=== PATIENT | female | born 1995 | race Caucasian/White ===

== ENCOUNTER 2017-01-29 00:01 | Observation (INO) | payer OTHER ==
[~2017-01-29] VITALS: Ht 160 cm; Wt 83.0 kg
[~2017-01-29 00:01] MED LIST: MOTRIN800 M1 PO; MOTRIN800 MG PO; NATURAL IRON65 MG PO; PNV-DHA1 SGL PO; PRENATAL VITAMI1 T10 PO
[2017-01-29] MEDS ORDERED: PRENATAL LOW IR1 TA1 PO (00:41)
[2017-01-29 00:46] VITALS: BP 111/67
== END 2017-01-29 01:55 | disposition home or self-care (01) ==
LOC: MLD 00:01
PROVIDERS: ADMIT Obstetrics & Gynecology; ATTEND Obstetrics & Gynecology
DX: O26.899 Other specified pregnancy related conditions, unspecified trimester (principal); R10.9 Unspecified abdominal pain; Z3A.00 Weeks of gestation of pregnancy not specified

== ENCOUNTER 2017-02-10 23:20 | Observation (INO) | payer OTHER ==
[~2017-02-10] VITALS: Ht 160 cm; Wt 82.6 kg
[~2017-02-10 23:20] MED LIST changes: +PRENATAL LOW IR1 TA1 PO
[2017-02-11 00:27] VITALS: BP 107/58
[2017-02-11] MEDS ORDERED: PRENATAL LOW IR1 TA1 PO (00:30)
== END 2017-02-11 01:23 | disposition home or self-care (01) ==
LOC: MLD 23:20
PROVIDERS: ADMIT Obstetrics & Gynecology; ATTEND Obstetrics & Gynecology
DX: O36.8120 Decreased fetal movements, second trimester, not applicable or unspecified (principal); Z3A.22 22 weeks gestation of pregnancy
CPT/HCPCS: 59025; 81000; G0378

== ENCOUNTER 2017-03-13 19:49 | Emergency (ER) | payer OTHER ==
[~2017-03-13] VITALS: Ht 160 cm; Wt 88.0 kg
[2017-03-13 15:52] VITALS: BP 109/59
[2017-03-13 16:01] LABS: BASOPHILS % (AUTO) 0.6 % (0.0-2.0); EOSINOPHILS # (AUTO) 0.1 K/uL (0-0.4); EOSINOPHILS % (AUTO) 1.5 % (0.0-4.0); HEMATOCRIT 33.8 % (36-48); HEMOGLOBIN 11.2 g/dL (12.0-16.0); LYMPHOCYTES # (AUTO) 1.6 K/uL (2.5-16.5); MEAN CORPUSCULAR HEMOGLOBIN 29 pg (27-31); MEAN CORPUSCULAR HGB CONC 33 g/dL (33-37); MEAN CORPUSCULAR VOLUME 89 fL (80-94); MONOCYTES # (AUTO) 0.5 K/uL (0.8-1.0); MONOCYTES % (AUTO) 6.3 % (1.7-9.3); NEUTROPHILS # (AUTO) 5.8 K/uL (1.8-7.7); NEUTROPHILS % (AUTO) 71.6 % (42.2-75.2); PLATELET COUNT (AUTO) 205 K/uL (140-450); RED BLOOD CELL COUNT(AUTO) 3.81 MIL/uL (4.20-5.40); RED CELL DISTRIBUTION WIDTH 12.3 % (11.6-13.7)
[2017-03-13 16:19] LABS: ANION GAP 12.9 (8-16); CARBON DIOXIDE 23.8 mmol/L (21-32); CREATININE 0.5 mg/dL (0.6-1.3); POTASSIUM 3.7 mmol/L (3.5-5.1)
[2017-03-13 16:25] LABS: ALBUMIN 2.5 g/dL (3.4-5.0); TOTAL BILIRUBIN 0.2 mg/dL (0.0-1.0); TOTAL PROTEIN, SERUM 6.2 g/dL (6.4-8.2)
[~2017-03-13 19:49] MED LIST changes: +LACTATED RINGERS 1,000 ML IV SCH; -MOTRIN800 M1 PO; -MOTRIN800 MG PO; -NATURAL IRON65 MG PO; -PNV-DHA1 SGL PO; +PREN-380 PO; -PRENATAL LOW IR1 TA1 PO; -PRENATAL VITAMI1 T10 PO
[2017-03-13 19:59] VITALS: BP 107/62
--- NOTE | 2017-03-13 20:20 | NUR ---
21Y F PRESENT TO ER C/O OF SORENESS IN HER CHEST, NO SOB. PAIN 5/10 IN SCALE. NO DISTRESS NOTED. DENIES INJURY.
[2017-03-13 20:40] VITALS: BP 104/51
== END 2017-03-13 20:40 | disposition home or self-care (01) ==
LOC: EDSTATUS 19:49 → MED 19:49
DX: O26.892 Other specified pregnancy related conditions, second trimester (principal); R07.89 Other chest pain; O23.42 Unspecified infection of urinary tract in pregnancy, second trimester; Z3A.27 27 weeks gestation of pregnancy; Z88.5 Allergy status to narcotic agent
CPT/HCPCS: 36415; 59025; 76805; 80053; 81002; 81025; 85025; 93005; 96360; 96361; 99285; J7120; Q0092

== ENCOUNTER 2017-03-24 19:43 | Emergency (ER) | payer OTHER ==
[~2017-03-24] VITALS: Ht 160 cm; Wt 86.2 kg
[2017-03-24 18:15] VITALS: BP 115/68
[~2017-03-24 19:43] MED LIST changes: -LACTATED RINGERS 1,000 ML IV SCH
[2017-03-24 19:46] VITALS: BP 127/76
[2017-03-24] MEDS ORDERED: NACL 0.9% 1,000 ML IV ONE (19:49)
[2017-03-24] MEDS ORDERED: ONDANSETRON 4 MG/2 ML VIAL IVP ONE (19:50)
[2017-03-24] MEDS ORDERED: diphenhydrAMINE 50 MG/ML VIAL IVP ONE (19:50)
[2017-03-24] MEDS ORDERED: METOCLOPRAMIDE 10 MG/2 ML INJ VIAL IVP ONE (19:50)
--- NOTE | 2017-03-24 20:15 | NUR ---
PATIENT LEFT WITHOUT BEING SEEN BY DR. FOWLER. NO FURTHER CARE PROVIDED FOR PATIENT.
--- NOTE | 2017-03-24 20:15 | NUR ---
CALLED BY ANIMAL CYTOLOGIST NO ANSWER
== END 2017-03-24 20:15 | disposition left against medical advice (07) ==
LOC: EDSTATUS 19:43 → MED 19:43
DX: R11.2 Nausea with vomiting, unspecified (principal); Z53.21 Procedure and treatment not carried out due to patient leaving prior to being seen by health care provider
CPT/HCPCS: 81002

== ENCOUNTER 2017-04-23 10:40 | Observation (INO) | payer OTHER ==
[~2017-04-23] VITALS: Ht 160 cm; Wt 88.0 kg
[2017-04-23] MEDS ORDERED: TERBUTALINE 1 MG/ML VIAL SUBQ SCH (11:00)
[2017-04-23] MEDS ORDERED: BETAMETH ACET/BETAMETH NA PH 30 MG/5 ML VIAL IM ONE ×2 (11:17→22:52)
[2017-04-23] MEDS ORDERED: TERBUTALINE 1 MG/ML VIAL SUBQ ONE ×2 (11:18→13:16)
[2017-04-23] MEDS: BETAMETH ACET/BETAMETH NA PH 30 MG/5 ML VIAL IM SCH ×2 (11:20→22:48)
[2017-04-23 12:58] VITALS: BP 105/60
[2017-04-23] MEDS ORDERED: TERBUTALINE 2.5 MG TAB PO SCH (16:00)
[2017-04-23] MEDS ORDERED: TERBUTALINE 2.5 MG TAB ONE ×2 (16:01→19:59)
== END 2017-04-23 23:12 | disposition home or self-care (01) ==
LOC: MFCC 10:40
PROVIDERS: ADMIT Obstetrics & Gynecology; ATTEND Obstetrics & Gynecology
DX: O62.9 Abnormality of forces of labor, unspecified (principal); Z3A.34 34 weeks gestation of pregnancy
CPT/HCPCS: 76805; 81000; 96372; G0378; J0702; J3105; Q0092

== ENCOUNTER 2017-05-08 15:10 | Observation (INO) | payer OTHER ==
[~2017-05-08] VITALS: Ht 160 cm; Wt 86.2 kg
[2017-05-08 16:05] VITALS: BP 94/51
== END 2017-05-08 17:20 | disposition home or self-care (01) ==
LOC: MLD 15:10
PROVIDERS: ADMIT Obstetrics & Gynecology; ATTEND Obstetrics & Gynecology
DX: O36.8130 Decreased fetal movements, third trimester, not applicable or unspecified (principal); Z3A.00 Weeks of gestation of pregnancy not specified
CPT/HCPCS: 76819; G0378; Q0092

== ENCOUNTER 2017-05-22 22:55 | Observation (INO) | payer OTHER ==
[2017-05-22 23:10] VITALS: BP 93/55
[2017-05-23] MEDS ORDERED: PREN-546 PO (03:49)
--- NOTE | 2017-05-23 08:14 | NUR ---
PATIENT HAS BEEN SCREENED AND CATEGORIZED LOW NUTRITION RISK. PATIENT WILL BE SEEN WITHIN 7 DAYS OF ADMISSION. 05/29/[address]
== END 2017-05-23 09:45 | disposition home or self-care (01) ==
LOC: MLD 22:55
PROVIDERS: ADMIT Obstetrics & Gynecology; ATTEND Obstetrics & Gynecology
DX: O26.899 Other specified pregnancy related conditions, unspecified trimester (principal); R10.9 Unspecified abdominal pain; Z3A.00 Weeks of gestation of pregnancy not specified
CPT/HCPCS: 76815; G0378; Q0092

== ENCOUNTER 2017-05-26 16:05 | Observation (INO) | payer OTHER ==
[~2017-05-26] VITALS: Ht 160 cm; Wt 87.5 kg
[~2017-05-26 16:05] MED LIST changes: +PREN-546 PO
[2017-05-26 16:43] VITALS: BP 106/58
== END 2017-05-26 18:10 | disposition home or self-care (01) ==
LOC: MLD 16:05
PROVIDERS: ADMIT Obstetrics & Gynecology; ATTEND Obstetrics & Gynecology
DX: O26.899 Other specified pregnancy related conditions, unspecified trimester (principal); R10.9 Unspecified abdominal pain; Z3A.00 Weeks of gestation of pregnancy not specified
CPT/HCPCS: 76815; 81000; G0378

== ENCOUNTER 2017-05-27 04:15 | Inpatient (IN) | payer OTHER ==
[~2017-05-27] VITALS: Ht 160 cm; Wt 87.5 kg
[~2017-05-27 04:15] MED LIST changes: -PREN-380 PO
[2017-05-27 04:25] VITALS: BP 121/55
[2017-05-27] MEDS ORDERED: OXYTOCIN 20 UNITS in LACTATED RINGERS 1,000 ML IV SCH ×2 (04:32→07:10)
[2017-05-27] MEDS ORDERED: METHYLERGONOVINE 0.2 MG/ML AMP IM PRN ×2 (04:35→06:35)
[2017-05-27] MEDS ORDERED: PROMETHAZINE 25 MG/ML VIAL IVP PRN (04:35)
[2017-05-27] MEDS ORDERED: CARBOPROST 250 MCG/ML AMP IM PRN (04:35)
[2017-05-27] MEDS ORDERED: IBUPROFEN 800 MG TAB PO PRN ×2 (04:35→06:35)
[2017-05-27] MEDS: LACTATED RINGERS 1,000 ML IV SCH ×2 (04:55→05:44)
[2017-05-27 05:15] LABS: BASOPHILS # (AUTO) 0.3 K/uL (0.00-0.22); BASOPHILS % (AUTO) 2.8 % (0.0-2.0); EOSINOPHILS # (AUTO) 0.2 K/uL (0-0.4); EOSINOPHILS % (AUTO) 2.5 % (0.0-4.0); HEMATOCRIT 34.4 % (36-48); HEMOGLOBIN 10.9 g/dL (12.0-16.0); LYMPHOCYTES % (AUTO) 21.8 % (20.5-51.1); MEAN CORPUSCULAR HEMOGLOBIN 28 pg (27-31); MEAN CORPUSCULAR HGB CONC 32 g/dL (33-37); MEAN CORPUSCULAR VOLUME 87 fL (80-94); MONOCYTES # (AUTO) 0.8 K/uL (0.8-1.0); NEUTROPHILS # (AUTO) 5.8 K/uL (1.8-7.7); NEUTROPHILS % (AUTO) 63.9 % (42.2-75.2); PLATELET COUNT (AUTO) 190 K/uL (140-450); RED BLOOD CELL COUNT(AUTO) 3.97 MIL/uL (4.20-5.40); RED CELL DISTRIBUTION WIDTH 13.3 % (11.6-13.7); WHITE BLOOD COUNT (AUTO) 9.1 K/uL (4.5-11.0)
[2017-05-27] MEDS ORDERED: LIDOCAINE 1% 500 MG/50 ML VIAL INJ SCH (05:20)
[2017-05-27 05:30] LABS: APPEARANCE,URINE CLOUDY (CLEAR); BILIRUBIN,URINE NEGATIVE (NEGATIVE); BLOOD, URINE 3+ (NEGATIVE); COLOR,URINE YELLOW (YELLOW); LEUKOCYTE ESTERASE ,URINE 3+ (NEGATIVE); NITRITE, URINE NEGATIVE (NEGATIVE); UGLUCOSE NEGATIVE (NEGATIVE)
[2017-05-27 05:33] LABS: ANION GAP 12.2 (8-16); CARBON DIOXIDE 23.2 mmol/L (21-32); CREATININE 0.6 mg/dL (0.6-1.3); POTASSIUM 3.4 mmol/L (3.5-5.1)
[2017-05-27 05:39] LABS: ALBUMIN 2.1 g/dL (3.4-5.0); TOTAL BILIRUBIN 0.2 mg/dL (0.0-1.0)
[2017-05-27 05:42] LABS: RBC,URINE 3-10 (FEW) /HPF (0-5); WBC,URINE 60-80 /HPF (0-5)
[2017-05-27] MEDS ORDERED: OXYTOCIN 10 UNITS/ML VIAL ONE (05:43)
[2017-05-27] MEDS ORDERED: LIDOCAINE 1% 50 ML ONE (05:43)
[2017-05-27] MEDS ORDERED: OXYTOCIN 20 UNITS/LR PREMIX 1,000 ML IV ONE (05:43)
[2017-05-27] MEDS ORDERED: oxyCODONE/APAP 5/325 MG 1 TAB TAB PO PRN (06:35)
[2017-05-27] MEDS ORDERED: BENZOCAINE/MENTHOL 20%-0.5% 60 GM CAN TP PRN (06:35)
[2017-05-27] MEDS ORDERED: HYDROcodone/APAP 5/325 MG 1 TAB TAB PO PRN (06:35)
[2017-05-27] MEDS ORDERED: MEASLES, MUMPS, AND RUBELLA 1 VIAL SQVAC PRN (06:35)
[2017-05-27] MEDS ORDERED: OXYTOCIN 10 UNITS/ML VIAL IM PRN (06:35)
[2017-05-27] MEDS ORDERED: TEMAZEPAM 15 MG CAP PO PRN (06:35)
[2017-05-27] MEDS ORDERED: oxyCODONE/APAP 5/325 MG 1 TAB TAB ONE (07:57)
--- NOTE | 2017-05-27 09:10 | NUR ---
PATIENT HAS BEEN SCREENED AND CATEGORIZED LOW NUTRITION RISK. PATIENT WILL BE SEEN WITHIN 7 DAYS OF ADMISSION. 06/02/[address]
[2017-05-27] MEDS ORDERED: OXYTOCIN 10 UNITS/ML VIAL IM ONE (11:00)
[2017-05-27] MEDS ORDERED: DOCUSATE SOD/SENNA 50/8.6 MG 1 TAB PO SCH (21:00)
[2017-05-28 06:36] LABS: HEMATOCRIT 33.9 % (36-48)
[2017-05-28] MEDS ORDERED: IBUP-1842 PO (10:20)
== END 2017-05-28 18:00 | disposition home or self-care (01) | DRG 560 ==
LOC: MLD 04:15 → OBSVTOIN 04:32 → MFCC 09:30
PROVIDERS: ADMIT Obstetrics & Gynecology; ATTEND Obstetrics & Gynecology
PROC: 10E0XZZ Delivery of Products of Conception, External Approach (ICD-10-PCS; principal; 2017-05-27)
PROC: 3E033VJ Introduction of Other Hormone into Peripheral Vein, Percutaneous Approach (ICD-10-PCS; 2017-05-27)
DX: O80 Encounter for full-term uncomplicated delivery (principal); Z88.5 Allergy status to narcotic agent; Z37.0 Single live birth; Z3A.37 37 weeks gestation of pregnancy
CPT/HCPCS: 36415; 59409; 80053; 81001; 85018; 85025; 86592; 86886; 86900; 86901; 87086; 90715; G0378; J2001; J2590; J7120

== ENCOUNTER 2017-07-09 14:18 | Emergency (ER) | payer OTHER ==
[~2017-07-09] VITALS: Ht 160 cm; Wt 80.9 kg
[~2017-07-09 14:18] MED LIST changes: +IBUP-1842 PO
[2017-07-09 14:22] VITALS: BP 122/75
--- NOTE | 2017-07-09 14:22 | NUR ---
Patient ambulated to bed 11.
--- NOTE | 2017-07-09 14:30 | NUR ---
21F BIB FAMILY C/O 06/25 "SHARP" NON RADIATING RT UPPER QUADRANT ABDOMINAL PAIN X 3 DAYS WITH NAUSEA AND EMESIS DENIES ANY DIARRHEA OR URINARY COMPLAINTS; PT DENIES ANY BLOOD IN EMESIS OR BOWEL; PT IS AOX4; RR ARE EVEN AND UNLABORED; NAD; PATIENT POSITIONED FOR COMFORT; ER MD AWARE OF PT STATUS; ALL NEEDS MET AT THIS TIME; WILL CONTINUE TO MONITOR
[2017-07-09] MEDS ORDERED: NACL 0.9% 1,000 ML IV SCH (14:37)
--- NOTE | 2017-07-09 14:38 | NUR ---
Dr. Moreira evaluating patient at bedside.
[2017-07-09] MEDS ORDERED: ONDANSETRON 4 MG/2 ML VIAL IVP ONE (14:40)
[2017-07-09] MEDS ORDERED: KETOROLAC 30 MG/ML VIAL IVP ONE (14:40)
--- NOTE | 2017-07-09 14:47 | NUR ---
US at bedside.
[2017-07-09 14:57] LABS: BILIRUBIN,URINE NEGATIVE (NEGATIVE); BLOOD, URINE NEGATIVE (NEGATIVE); COLOR,URINE YELLOW (YELLOW); LEUKOCYTE ESTERASE ,URINE 1+ (NEGATIVE); NITRITE, URINE NEGATIVE (NEGATIVE); PH,URINE 6.5 (5.0-9.0); UGLUCOSE NEGATIVE (NEGATIVE)
[2017-07-09 15:01] LABS: HEMATOCRIT 39.1 % (36-48); HEMOGLOBIN 12.8 g/dL (12.0-16.0); RED BLOOD CELL COUNT(AUTO) 4.57 MIL/uL (4.20-5.40); WHITE BLOOD COUNT (AUTO) 7.9 K/uL (4.5-11.0)
[2017-07-09 15:02] LABS: BASOPHILS % (AUTO) 0.2 % (0.0-2.0); EOSINOPHILS % (AUTO) 2.6 % (0.0-4.0); LYMPHOCYTES % (AUTO) 21.5 % (20.5-51.1); MEAN CORPUSCULAR HEMOGLOBIN 28 pg (27-31); MEAN CORPUSCULAR HGB CONC 33 g/dL (33-37); MEAN CORPUSCULAR VOLUME 86 fL (80-94); MONOCYTES % (AUTO) 8.2 % (1.7-9.3); NEUTROPHILS # (AUTO) 5.3 K/uL (1.8-7.7); NEUTROPHILS % (AUTO) 67.5 % (42.2-75.2); PLATELET COUNT (AUTO) 275 K/uL (140-450); RED CELL DISTRIBUTION WIDTH 14.8 % (11.6-13.7)
[2017-07-09 15:03] LABS: EOSINOPHILS # (AUTO) 0.2 K/uL (0-0.4); LYMPHOCYTES # (AUTO) 1.7 K/uL (2.5-16.5); MONOCYTES # (AUTO) 0.6 K/uL (0.8-1.0)
[2017-07-09 15:16] LABS: ALBUMIN 3.3 g/dL (3.4-5.0); ANION GAP 8.2 (8-16); CARBON DIOXIDE 31.5 mmol/L (21-32); CREATININE 0.7 mg/dL (0.6-1.3); POTASSIUM 3.7 mmol/L (3.5-5.1); TOTAL BILIRUBIN 0.3 mg/dL (0.0-1.0)
[2017-07-09 15:41] LABS: APPEARANCE,URINE HAZY (CLEAR)
[2017-07-09 15:44] LABS: RBC,URINE NONE SEEN /HPF (0-5); WBC,URINE 80-100 /HPF (0-5)
[2017-07-09] MEDS ORDERED: fentaNYL 0.05 MG/ML VIAL IVP ONE (16:10)
[2017-07-09] MEDS ORDERED: cefTRIAXone 1,000 MG VIAL ONE (16:13)
[2017-07-09 17:13] VITALS: BP 107/72
--- NOTE | 2017-07-09 17:13 | NUR ---
Patient discharged with v/s stable. Written and verbal after care instructions given and explained. Patient alert, oriented and verbalized understanding of instructions. Ambulatory with steady gait. All questions addressed prior to discharge. ID band removed. Patient advised to follow up with PMD. Rx of Cephalexin, Zofran, and Naprosyn given. Patient educated on indication of medication including possible reaction and side effects. Opportunity to ask questions provided and answered.
== END 2017-07-09 17:13 | disposition home or self-care (01) ==
LOC: MED 14:18
DX: N20.0 Calculus of kidney (principal); Z88.5 Allergy status to narcotic agent
CPT/HCPCS: 36415; 76705; 80053; 81001; 81025; 83605; 83690; 85025; 87040; 87086; 96361; 96365; 96374; 96375; 99285; J0696; J1885; J2405; J3010; J7030; J7060; Q0092

== ENCOUNTER 2017-08-15 18:06 | Emergency (ER) | payer OTHER ==
[~2017-08-15] VITALS: Ht 160 cm; Wt 82.7 kg
[2017-08-15 18:34] VITALS: BP 119/66
--- NOTE | 2017-08-15 18:52 | NUR ---
Patient to bed 03.
[2017-08-15 18:54] VITALS: BP 119/66
[2017-08-15 18:55] LABS: BASOPHILS # (AUTO) 0.3 K/uL (0.00-0.22); EOSINOPHILS # (AUTO) 0.1 K/uL (0-0.4); HEMATOCRIT 37.9 % (36-48); HEMOGLOBIN 12.6 g/dL (12.0-16.0); LYMPHOCYTES # (AUTO) 2.2 K/uL (2.5-16.5); MEAN CORPUSCULAR HEMOGLOBIN 29 pg (27-31); MEAN CORPUSCULAR HGB CONC 33 g/dL (33-37); MEAN CORPUSCULAR VOLUME 86 fL (80-94); MONOCYTES # (AUTO) 0.5 K/uL (0.8-1.0); NEUTROPHILS # (AUTO) 4.4 K/uL (1.8-7.7); PLATELET COUNT (AUTO) 246 K/uL (140-450); RED CELL DISTRIBUTION WIDTH 13.9 % (11.6-13.7); WHITE BLOOD COUNT (AUTO) 7.5 K/uL (4.8-10.8)
[2017-08-15 18:58] LABS: APPEARANCE,URINE HAZY (CLEAR); BILIRUBIN,URINE NEGATIVE (NEGATIVE); BLOOD, URINE NEGATIVE (NEGATIVE); COLOR,URINE YELLOW (YELLOW); LEUKOCYTE ESTERASE ,URINE 2+ (NEGATIVE); NITRITE, URINE NEGATIVE (NEGATIVE); UGLUCOSE NEGATIVE (NEGATIVE)
--- NOTE | 2017-08-15 18:59 | NUR ---
PATIENT PRESENTS TO ED WITH C/O RIGHT FLANK PAIN THAT RADIATES INTO LOW TO MID ABDOMEN X2 DAYS . PT STATES SHE WAS SEEN IN ER 3 WEEKS AGO FOR SAME S/SX . DENIES N/V/D; SKIN IS PINK/WARM/DRY; AAOX4 WITH EVEN AND STEADY GAIT; LUNGS CLEAR BL; HR EVEN AND REGULAR; PT DENIES ANY FEVER, CP, SOB, OR COUGH AT THIS TIME; PATIENT STATES PAIN OF 9/10 AT THIS TIME; VSS; PATIENT POSITIONED FOR COMFORT; HOB ELEVATED; BEDRAILS UP X2; BED DOWN. ER MD MADE AWARE OF PT STATUS.
--- NOTE | 2017-08-15 19:00 | NUR ---
REPORT RECEIVED FROM CK BERRIOS
[2017-08-15 19:04] LABS: RBC,URINE 0-5 (RARE) /HPF (0-5)
[2017-08-15 19:11] LABS: ANION GAP 9.7 (8-16); CARBON DIOXIDE 28.2 mmol/L (21-32); CREATININE 0.7 mg/dL (0.6-1.3); POTASSIUM 3.9 mmol/L (3.5-5.1)
[2017-08-15 19:17] LABS: ALBUMIN 3.5 g/dL (3.4-5.0); TOTAL BILIRUBIN 0.2 mg/dL (0.0-1.0)
[2017-08-15] MEDS ORDERED: GLYCOPYRROLATE 0.2 MG/ML VIAL IM ONE (20:10)
[2017-08-15] MEDS ORDERED: KETOROLAC 30 MG/ML VIAL IM ONE (20:10)
--- NOTE | 2017-08-15 21:14 | NUR ---
PT MD MAYELIN NOTIFIED.
--- NOTE | 2017-08-15 21:17 | NUR ---
PATIENT ELOPED FROM FACILITY. DISCHARGE INSTRUCTIONS NOT GIVEN TO PATIENT. DR. SONI NOTIFIED.
== END 2017-08-15 21:14 | disposition left against medical advice (07) ==
LOC: MED 18:06
DX: N20.0 Calculus of kidney (principal); N39.0 Urinary tract infection, site not specified; Z88.5 Allergy status to narcotic agent
CPT/HCPCS: 36415; 74176; 80053; 81001; 81025; 83690; 85025; 87086; 99285; J1885; J3490

== ENCOUNTER 2017-12-09 15:23 | Emergency (ER) | payer OTHER ==
[~2017-12-09] VITALS: Ht 160 cm; Wt 84.4 kg
[2017-12-09 16:10] VITALS: BP 124/78
--- NOTE | 2017-12-09 16:15 | NUR ---
AFTER PROVIDING URINE SAMPLE, PT AMBULATES BACK TO THE LOBBY PER DR DOWNING
[2017-12-09 17:10] LABS: BASOPHILS # (AUTO) 0.1 K/uL (0.00-0.22); EOSINOPHILS # (AUTO) 0.3 K/uL (0-0.4); EOSINOPHILS % (AUTO) 3.5 % (0.0-4.0); HEMATOCRIT 39.2 % (36-48); HEMOGLOBIN 13.2 g/dL (12.0-16.0); LYMPHOCYTES # (AUTO) 2.2 K/uL (2.5-16.5); LYMPHOCYTES % (AUTO) 28.8 % (20.5-51.1); MEAN CORPUSCULAR HEMOGLOBIN 28 pg (27-31); MEAN CORPUSCULAR HGB CONC 34 g/dL (33-37); MEAN CORPUSCULAR VOLUME 83.5 fL (80-94); MONOCYTES # (AUTO) 0.4 K/uL (0.8-1.0); MONOCYTES % (AUTO) 5.3 % (1.7-9.3); NEUTROPHILS # (AUTO) 4.5 K/uL (1.8-7.7); NEUTROPHILS % (AUTO) 60.4 % (42.2-75.2); PLATELET COUNT (AUTO) 237 K/uL (140-450); RED BLOOD CELL COUNT(AUTO) 4.69 MIL/uL (4.20-5.40); WHITE BLOOD COUNT (AUTO) 7.5 K/uL (4.8-10.8)
[2017-12-09 17:27] LABS: PROTHROMBIN TIME 10.1 secs (10.8-13.4)
--- NOTE | 2017-12-09 19:24 | NUR ---
PATIENT AMBULATED TO ER BED 2
--- NOTE | 2017-12-09 19:25 | NUR ---
22/F CAME IN WITH FAMILY, C/O HEAVY VAGINAL BLEEDING AND CLOTS X1 DAY, BLEEDING CONTROLLED AT THIS TIME. PT REPORTS 06/25 VAGINAL/SUPRAPUBIC CRAMPING/"CONTRACTIONS" PAIN, RADIATING TO LOWER BACK, CONSTANT. ASSOCIATED WITH HEADACHE, DIZZINESS. PT REPORTS PREVIOUS N/V, BUT DENIES AT THIS TIME. PT DENIES FEVER, CP, SOB. AOX4, AMBULATORY, RR EVEN AND UNLABORED. PT REPORTS PREVIOUS 2X + AND LATEST - LAST WEEK. PT DENIES PMH.
--- NOTE | 2017-12-09 20:10 | NUR ---
Dr. Anderson evaluating patient.
--- NOTE | 2017-12-09 21:13 | NUR ---
Patient appears to be resting comfortably in bed. Vital Signs within normal limits. Respirations even and unlabored.
[2017-12-09 22:35] VITALS: BP 109/53
--- NOTE | 2017-12-09 22:35 | NUR ---
Patient discharged with v/s stable. Written and verbal after care instructions given and explained. Patient alert, oriented and verbalized understanding of instructions. Ambulatory with steady gait. All questions addressed prior to discharge. ID band removed. Patient advised to follow up with PMD. Rx of MEDROXYPROGESTERONE 10MG PO given. Patient educated on indication of medication including possible reaction and side effects. Opportunity to ask questions provided and answered.
--- NOTE | 2017-12-09 22:35 | NUR ---
PT ASKING FOR WORK NOTE, SIGNED D/C PAPERS WERE GIVEN ALONG WITH PT.
== END 2017-12-09 22:35 | disposition home or self-care (01) ==
LOC: MED 15:23
DX: N93.8 Other specified abnormal uterine and vaginal bleeding (principal); Z79.899 Other long term (current) drug therapy; Z88.5 Allergy status to narcotic agent
CPT/HCPCS: 36415; 76830; 81002; 81025; 84702; 85025; 85610; 85730; 99285; Q0092

== ENCOUNTER 2018-01-07 13:04 | Emergency (ER) | payer OTHER ==
[~2018-01-07] VITALS: Ht 160 cm; Wt 84.8 kg
[2018-01-07 13:12] VITALS: BP 113/73
--- NOTE | 2018-01-07 13:16 | NUR ---
PT AMBULATES TO CHAIR A
--- NOTE | 2018-01-07 13:18 | NUR ---
PATIENT PRESENTS TO ED WITH C/O BL LOWER LEG PAIN, AMBULATES TO CHAIR A WITHOUT DIFFICULTY; DENIES INJURY; DENIES N/V/D; SKIN IS PINK/WARM/DRY; AAOX4 WITH EVEN AND STEADY GAIT; LUNGS CLEAR BL; HR EVEN AND REGULAR; PT DENIES ANY FEVER, CP, SOB, OR COUGH AT THIS TIME; PATIENT STATES PAIN OF 9/10 AT THIS TIME; VSS; PATIENT POSITIONED FOR COMFORT; ER MD MADE AWARE OF PT STATUS.
--- NOTE | 2018-01-07 13:30 | NUR ---
PT EVALUATING AAO PT ON CHAIR A
[2018-01-07 13:50] VITALS: BP 110/67
== END 2018-01-07 13:50 | disposition home or self-care (01) ==
LOC: MED 13:04
DX: R20.2 Paresthesia of skin (principal); M79.1 Myalgia; M54.5 Low back pain; Z88.6 Allergy status to analgesic agent
CPT/HCPCS: 81002; 81025; 82948; 99283

== ENCOUNTER 2018-02-11 20:25 | Emergency (ER) | payer OTHER ==
[~2018-02-11] VITALS: Ht 160 cm; Wt 88.7 kg
[2018-02-11 20:30] VITALS: BP 119/72
--- NOTE | 2018-02-11 20:57 | NUR ---
PT TAKEN TO BED 12
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
--- NOTE | 2018-02-11 22:00 | NUR ---
AWAITING MD EVALUATION
--- NOTE | 2018-02-11 23:18 | NUR ---
PT RESTING COMFORTABLY IN BED, VSS, PT DENIES PAIN AT THIS TIME, ALL NEEDS MET.
--- NOTE | 2018-02-12 00:43 | NUR ---
PT RESTING COMFORTABLY IN BED, VSS, PT DENIES PAIN AT THIS TIME, PROVIDED SNACKS, ALL NEEDS MET AT THIS TIME.
--- NOTE | 2018-02-12 02:08 | NUR ---
PT SLEEPING COMFORTABLY IN BED, VSS, ALL NEEDS MET AT THIS TIME.
--- NOTE | 2018-02-12 02:14 | NUR ---
Dr. Rodrigez evaluating patient at bedside.
[2018-02-12] MEDS ORDERED: ONDANSETRON 4 MG/2 ML VIAL IVP ONE (03:00)
[2018-02-12] MEDS ORDERED: cefTRIAXone 1,000 MG in DEXT 5% MINI-BAG PLUS 50 ML IV ONE (03:00)
[2018-02-12] MEDS ORDERED: cefTRIAXone 1,000 MG VIAL ONE (03:14)
[2018-02-12 03:31] LABS: BASOPHILS % (AUTO) 0.4 % (0.0-2.0); EOSINOPHILS # (AUTO) 0.2 K/uL (0-0.4); EOSINOPHILS % (AUTO) 2.5 % (0.0-4.0); HEMATOCRIT 36.9 % (36-48); HEMOGLOBIN 12.1 g/dL (12.0-16.0); LYMPHOCYTES # (AUTO) 2.5 K/uL (2.5-16.5); LYMPHOCYTES % (AUTO) 36.3 % (20.5-51.1); MEAN CORPUSCULAR HEMOGLOBIN 27 pg (27-31); MEAN CORPUSCULAR HGB CONC 33 g/dL (33-37); MEAN CORPUSCULAR VOLUME 83.3 fL (80-94); MONOCYTES # (AUTO) 0.4 K/uL (0.8-1.0); MONOCYTES % (AUTO) 6.3 % (1.7-9.3); NEUTROPHILS # (AUTO) 3.7 K/uL (1.8-7.7); NEUTROPHILS % (AUTO) 54.5 % (42.2-75.2); PLATELET COUNT (AUTO) 246 K/uL (140-450); RED BLOOD CELL COUNT(AUTO) 4.43 MIL/uL (4.20-5.40); RED CELL DISTRIBUTION WIDTH 13.8 % (11.6-13.7); WHITE BLOOD COUNT (AUTO) 6.8 K/uL (4.8-10.8)
[2018-02-12 03:41] LABS: ANION GAP 13.2 (8-16); CARBON DIOXIDE 23.5 mmol/L (21-32); CREATININE 0.6 mg/dL (0.6-1.3); POTASSIUM 3.7 mmol/L (3.5-5.1)
[2018-02-12 03:48] LABS: TOTAL BILIRUBIN 0.2 mg/dL (0.0-1.0)
--- NOTE | 2018-02-12 03:59 | NUR ---
PT TAKEN TO ULTRASOUND
--- NOTE | 2018-02-12 04:38 | NUR ---
NEW UA SAMPLE COLLECTED, BROUGHT TO LAB AND HANDED TO BRIDGE WORKER
--- NOTE | 2018-02-12 04:38 | NUR ---
DR RUBIO AT BEDSIDE TO RE-EVALUATE PT. PT RESTING COMFORTABLY IN BED, VSS, RR EVEN AND UNLABORED. PT DENIES PAIN. ALL NEEDS MET AT THIS TIME.
[2018-02-12 04:48] LABS: APPEARANCE,URINE CLEAR (CLEAR); BILIRUBIN,URINE NEGATIVE (NEGATIVE); BLOOD, URINE NEGATIVE (NEGATIVE); COLOR,URINE YELLOW (YELLOW); LEUKOCYTE ESTERASE ,URINE 2+ (NEGATIVE); NITRITE, URINE NEGATIVE (NEGATIVE); PH,URINE 6.5 (5.0-9.0); UGLUCOSE NEGATIVE (NEGATIVE)
[2018-02-12 05:00] LABS: RBC,URINE 0-5 (RARE) /HPF (0-5); WBC,URINE 16-25 (MOD) /HPF (0-5)
[2018-02-12 05:48] VITALS: BP 113/64
== END 2018-02-12 05:48 | disposition home or self-care (01) ==
LOC: MED 20:25
DX: O26.891 Other specified pregnancy related conditions, first trimester (principal); R42 Dizziness and giddiness; Z88.5 Allergy status to narcotic agent
CPT/HCPCS: 36415; 76817; 80053; 81001; 81025; 84702; 85025; 86900; 86901; 87086; 96365; 96375; 99285; J0696; J2405; J7060

== ENCOUNTER 2018-03-12 20:38 | Emergency (ER) | payer OTHER ==
[~2018-03-12] VITALS: Ht 160 cm; Wt 84.8 kg
[2018-03-12 20:42] VITALS: BP 143/68
--- NOTE | 2018-03-12 20:44 | NUR ---
TO BED # 4 AMB, REPORT GIVEN TO LATONYA STOVER.
--- NOTE | 2018-03-12 20:50 | NUR ---
ASSUMED CARE OF PT AT THIS TIME. C/O RUQ ABDOMINAL PAIN AND DIZZINESS X 6 DAYS. PT DENIES ANY N/V/D, CONSTIPATION, OR URINARY COMPLAINTS. PT STATES SHE IS APPROXIMATELY 8 WEEKS OB+. AAOX4 WITH EVEN AND STEADY GAIT; PATIENT STATES PAIN OF 10/10 AT THIS TIME; VSS; PATIENT POSITIONED FOR COMFORT; HOB ELEVATED; BEDRAILS UP X2; BED DOWN. ER MD MADE AWARE OF PT STATUS. WILL CONTINUE TO MONITOR.
--- NOTE | 2018-03-12 21:38 | NUR ---
PT TAKEN TO ULTRASOUND
[2018-03-12 21:40] LABS: APPEARANCE,URINE CLEAR (CLEAR); BILIRUBIN,URINE NEGATIVE (NEGATIVE); BLOOD, URINE NEGATIVE (NEGATIVE); COLOR,URINE YELLOW (YELLOW); LEUKOCYTE ESTERASE ,URINE 1+ (NEGATIVE); NITRITE, URINE NEGATIVE (NEGATIVE); UGLUCOSE NEGATIVE (NEGATIVE)
[2018-03-12 21:41] LABS: BASOPHILS % (AUTO) 0.2 % (0.0-2.0); EOSINOPHILS # (AUTO) 0.1 K/uL (0-0.4); EOSINOPHILS % (AUTO) 1.7 % (0.0-4.0); HEMATOCRIT 36.7 % (36-48); HEMOGLOBIN 12.1 g/dL (12.0-16.0); LYMPHOCYTES # (AUTO) 2.1 K/uL (2.5-16.5); LYMPHOCYTES % (AUTO) 30.8 % (20.5-51.1); MEAN CORPUSCULAR HEMOGLOBIN 28 pg (27-31); MEAN CORPUSCULAR HGB CONC 33 g/dL (33-37); MEAN CORPUSCULAR VOLUME 84.3 fL (80-94); MONOCYTES # (AUTO) 0.5 K/uL (0.8-1.0); MONOCYTES % (AUTO) 7.2 % (1.7-9.3); NEUTROPHILS % (AUTO) 60.1 % (42.2-75.2); PLATELET COUNT (AUTO) 192 K/uL (140-450); RED BLOOD CELL COUNT(AUTO) 4.35 MIL/uL (4.20-5.40); RED CELL DISTRIBUTION WIDTH 13.9 % (11.6-13.7); WHITE BLOOD COUNT (AUTO) 6.7 K/uL (4.8-10.8)
[2018-03-12 21:53] LABS: RBC,URINE 0-5 (RARE) /HPF (0-5)
--- NOTE | 2018-03-12 23:13 | NUR ---
Dr. Rodrigez evaluating patient at bedside.
--- NOTE | 2018-03-12 23:15 | NUR ---
RECEIVED REPORT FROM LATONYA STOVER. TRANSFER OF CARE AT THIS TIME.
--- NOTE | 2018-03-12 23:20 | NUR ---
PATIENT RESTING AT THIS TIME. NO SIGNS OF DISTRESS.
[2018-03-12 23:56] VITALS: BP 107/67
== END 2018-03-12 23:50 | disposition home or self-care (01) ==
LOC: MED 20:38
DX: O26.891 Other specified pregnancy related conditions, first trimester (principal); N20.0 Calculus of kidney; Z3A.08 8 weeks gestation of pregnancy
CPT/HCPCS: 36415; 76705; 76817; 81001; 81025; 84702; 85025; 86900; 86901; 87086; 99285

== ENCOUNTER 2018-04-25 15:51 | Emergency (ER) | payer OTHER ==
[~2018-04-25] VITALS: Ht 160 cm; Wt 81.6 kg
[2018-04-25 16:05] VITALS: BP 101/61
--- NOTE | 2018-04-25 16:10 | NUR ---
PT AMBULATES TO BED 3
--- NOTE | 2018-04-25 16:15 | NUR ---
22 YO F BIB SELF W/ C/O DIZZINESS, CRAMPS, AND LIGHT VAGINAL BLEEDING SINCE LAST NIGHT. PT REPORTS THE BLEEDING IS VERY SCANT, BUT THE CRAMPING IS VERY UNCOMFORTABLE, AND "FEELS LIKE CONTRACTIONS". REPORTS 15 WEEKS . HAS OB ESTABLISHED. TAKING VITAMINS. DENIES BLOOD CLOTS OR N/V AT THIS TIME. LMP 01/09/18, . PT AAOX4. GCS 15. CMS INTACT. RR EVEN AND UNLABORED. LUNGS CLEAR. ER MD NOTIFIED. PT NEEDS MET. SAFETY PRECAUTIONS IN PLACE. WILL CONTINUE TO MONITOR.
--- NOTE | 2018-04-25 17:17 | NUR ---
PT TALKING ON THE PHONE AT THIS TIME. VSS. SAFETY PRECAUTIONS IN PLACE. WILL CONTINUE TO MONITOR.
[2018-04-25 17:18] LABS: BASOPHILS % (AUTO) 0.1 % (0.0-2.0); EOSINOPHILS # (AUTO) 0.1 K/uL (0-0.4); EOSINOPHILS % (AUTO) 1.4 % (0.0-4.0); HEMATOCRIT 35.5 % (36-48); HEMOGLOBIN 11.8 g/dL (12.0-16.0); LYMPHOCYTES # (AUTO) 1.7 K/uL (2.5-16.5); LYMPHOCYTES % (AUTO) 22.9 % (20.5-51.1); MEAN CORPUSCULAR HEMOGLOBIN 28 pg (27-31); MEAN CORPUSCULAR HGB CONC 33 g/dL (33-37); MEAN CORPUSCULAR VOLUME 85.5 fL (80-94); MONOCYTES # (AUTO) 0.4 K/uL (0.8-1.0); MONOCYTES % (AUTO) 5.4 % (1.7-9.3); NEUTROPHILS # (AUTO) 5.3 K/uL (1.8-7.7); NEUTROPHILS % (AUTO) 70.2 % (42.2-75.2); PLATELET COUNT (AUTO) 190 K/uL (140-450); RED BLOOD CELL COUNT(AUTO) 4.15 MIL/uL (4.20-5.40); RED CELL DISTRIBUTION WIDTH 14.2 % (11.6-13.7); WHITE BLOOD COUNT (AUTO) 7.5 K/uL (4.8-10.8)
[2018-04-25 17:40] LABS: APPEARANCE,URINE CLEAR (CLEAR); BILIRUBIN,URINE NEGATIVE (NEGATIVE); BLOOD, URINE NEGATIVE (NEGATIVE); COLOR,URINE YELLOW (YELLOW); LEUKOCYTE ESTERASE ,URINE NEGATIVE (NEGATIVE); NITRITE, URINE NEGATIVE (NEGATIVE); PH,URINE 7.5 (5.0-9.0); UGLUCOSE NEGATIVE (NEGATIVE)
[2018-04-25 17:45] LABS: RBC,URINE 0-5 (RARE) /HPF (0-5)
[2018-04-25 17:46] LABS: WBC,URINE 0-5 (RARE) /HPF (0-5)
[2018-04-25 18:57] VITALS: BP 132/79
--- NOTE | 2018-04-25 18:58 | NUR ---
Patient discharged with v/s stable. Written and verbal after care instructions given and explained. Patient alert, oriented and verbalized understanding of instructions. Ambulatory with steady gait. All questions addressed prior to discharge. ID band removed. Patient advised to follow up with PMD. Rx of ACETAMINOPHEN 500MG given. Patient educated on indication of medication including possible reaction and side effects. Opportunity to ask questions provided and answered.
== END 2018-04-25 18:58 | disposition home or self-care (01) ==
LOC: MED 15:51
DX: O26.892 Other specified pregnancy related conditions, second trimester (principal); R10.30 Lower abdominal pain, unspecified; Z3A.15 15 weeks gestation of pregnancy; Z88.5 Allergy status to narcotic agent
CPT/HCPCS: 36415; 76805; 81001; 81025; 84702; 85025; 99285; Q0092

== ENCOUNTER 2018-05-06 10:55 | Emergency (ER) | payer OTHER ==
[~2018-05-06] VITALS: Ht 160 cm; Wt 88.9 kg
--- NOTE | 2018-05-06 11:00 | NUR ---
PT AMBULATED TO ER BED 09
[2018-05-06 11:03] VITALS: BP 124/65
--- NOTE | 2018-05-06 11:10 | NUR ---
PATIENT PRESENTS TO ED WITH COMPLAINTS OF LOWER ABDOMINAL PAIN, PATIENT IS 17 WEEKS . PATIENT STATES SHE FELL ON HER BELLY AT WORK THIS MORNING AND PAIN HAS BEEN CONSTANT SINCE. DENIES N/V/D; SKIN IS PINK/WARM/DRY; AAOX4 WITH EVEN AND STEADY GAIT; LUNGS CLEAR BL; HR EVEN AND REGULAR; PT DENIES ANY FEVER, CP, SOB, OR COUGH AT THIS TIME; PATIENT STATES PAIN OF 10/10 AT THIS TIME; VSS; PATIENT POSITIONED FOR COMFORT; HOB ELEVATED; BEDRAILS UP X1; BED DOWN. ER MD MADE AWARE OF PT STATUS.
[2018-05-06] MEDS ORDERED: ACETAMINOPHEN 325 MG TAB PO ONE (11:15)
[2018-05-06] MEDS ORDERED: ONDANSETRON 4 MG ODT PO ONE (12:00)
--- NOTE | 2018-05-06 12:55 | NUR ---
Patient discharged with v/s stable. Written and verbal after care instructions given and explained. Patient verbalized understanding. Ambulatory with steady gait. All questions addressed prior to discharge. Advised to follow up with PMD.
[2018-05-06 12:59] VITALS: BP 124/65
== END 2018-05-06 12:55 | disposition home or self-care (01) ==
LOC: MED 10:55
DX: O9A.212 Injury, poisoning and certain other consequences of external causes complicating pregnancy, second trimester (principal); S39.91XA Unspecified injury of abdomen, initial encounter; Z3A.16 16 weeks gestation of pregnancy; Z88.8 Allergy status to other drugs, medicaments and biological substances; W19.XXXA Unspecified fall, initial encounter; Y93.89 Activity, other specified; Y92.89 Other specified places as the place of occurrence of the external cause; Y99.8 Other external cause status
CPT/HCPCS: 76805; 81002; 81025; 99284; S0119

== ENCOUNTER 2018-06-04 01:30 | Inpatient (IN) | payer OTHER ==
[~2018-06-04] VITALS: Ht 160 cm; Wt 86.2 kg
[2018-06-04] MEDS ORDERED: ACETAMINOPHEN 325 MG TAB PO PRN (01:55)
[2018-06-04] MEDS ORDERED: ACETAMINOPHEN 325 MG TAB ONE (02:05)
[2018-06-04 02:43] VITALS: BP 109/57
[2018-06-04] MEDS ORDERED: TERBUTALINE 1 MG/ML VIAL SUBQ ONE (05:07)
[2018-06-04] MEDS ORDERED: TERBUTALINE 1 MG/ML VIAL SUBQ SCH (05:30)
--- NOTE | 2018-06-04 08:52 | NUR ---
PATIENT HAS BEEN SCREENED AND CATEGORIZED LOW NUTRITION RISK. PATIENT WILL BE SEEN WITHIN 7 DAYS OF ADMISSION. 06/10/[address]
== END 2018-06-04 18:55 | disposition home or self-care (01) | DRG 566 ==
LOC: MLD 01:30
PROVIDERS: ADMIT Obstetrics & Gynecology; ATTEND Obstetrics & Gynecology
DX: O26.892 Other specified pregnancy related conditions, second trimester (principal); R25.2 Cramp and spasm; Z3A.20 20 weeks gestation of pregnancy
CPT/HCPCS: 36415; 76805; 81000; 96372; J3105; Q0092

== ENCOUNTER 2018-07-28 23:40 | Inpatient (IN) | payer OTHER ==
[~2018-07-28] VITALS: Ht 160 cm; Wt 95.3 kg
[2018-07-29] MEDS ORDERED: NALBUPHINE 10 MG/ML AMP IVP PRN (00:10)
[2018-07-29] MEDS ORDERED: NALBUPHINE 10 MG/ML AMP ONE (00:55)
[2018-07-29 01:06] LABS: APPEARANCE,URINE CLEAR (CLEAR); BILIRUBIN,URINE NEGATIVE (NEGATIVE); BLOOD, URINE NEGATIVE (NEGATIVE); COLOR,URINE YELLOW (YELLOW); LEUKOCYTE ESTERASE ,URINE NEGATIVE (NEGATIVE); NITRITE, URINE NEGATIVE (NEGATIVE); PH,URINE 6.5 (5.0-9.0); RBC,URINE 0-5 (RARE) /HPF (0-5); UGLUCOSE NEGATIVE (NEGATIVE); WBC,URINE 0-5 (RARE) /HPF (0-5)
[2018-07-29] MEDS: LACTATED RINGERS 1,000 ML IV SCH ×3 (01:17→11:08)
[2018-07-29] MEDS ORDERED: PREN-380 PO (01:20)
[2018-07-29] MEDS ORDERED: FERR325E14 PO (01:20)
[2018-07-29 01:21] VITALS: BP 106/59
[2018-07-29] MEDS ORDERED: TERBUTALINE 1 MG/ML VIAL SUBQ SCH (01:35)
[2018-07-29] MEDS ORDERED: TERBUTALINE 1 MG/ML VIAL SUBQ ONE (01:41)
[2018-07-29] MEDS: TERBUTALINE 2.5 MG TAB PO SCH ×3 (06:05→14:12)
[2018-07-29] MEDS ORDERED: TERBUTALINE 2.5 MG TAB ONE ×3 (06:08→14:18)
--- NOTE | 2018-07-29 08:38 | NUR ---
PATIENT HAS BEEN SCREENED AND CATEGORIZED LOW NUTRITION RISK. PATIENT WILL BE SEEN WITHIN 7 DAYS OF ADMISSION. 08/04/[address]
== END 2018-07-29 16:15 | disposition home or self-care (01) | DRG 566 ==
LOC: MLD 23:40
PROVIDERS: ADMIT Obstetrics & Gynecology; ATTEND Obstetrics & Gynecology
DX: O99.89 Other specified diseases and conditions complicating pregnancy, childbirth and the puerperium (principal); N13.2 Hydronephrosis with renal and ureteral calculous obstruction; Z3A.28 28 weeks gestation of pregnancy
CPT/HCPCS: 36415; 76770; 81001; C1758; J2300; J3105; J7120; Q0092

== ENCOUNTER 2019-01-01 23:43 | Emergency (ER) | payer OTHER ==
[~2019-01-01] VITALS: Ht 160 cm; Wt 91.2 kg
[~2019-01-01 23:43] MED LIST changes: +FERR325E14 PO; -IBUP-1842 PO; +PREN-380 PO; -PREN-546 PO
[2019-01-02 00:15] VITALS: BP 115/77
--- NOTE | 2019-01-02 00:15 | NUR ---
PT AMBULATED TO BED 5
--- NOTE | 2019-01-02 00:16 | NUR ---
PATIENT PRESENTS TO ED WITH C/O ABD PAIN WITH NAUSEA AND DIZZINESS. PAIN 10/10. PT SKIN IS PINK/WARM/DRY; AAOX4 WITH EVEN AND STEADY GAIT; LUNGS CLEAR BL; HR EVEN AND REGULAR; PATIENT POSITIONED FOR COMFORT; HOB ELEVATED; BEDRAILS UP X2; BED DOWN.
[2019-01-02] MEDS ORDERED: KETOROLAC 60 MG/2 ML VIAL IM ONE (00:30)
--- NOTE | 2019-01-02 00:43 | NUR ---
DR DOWNING AT BEDSIDE TO EVALUATE PT
[2019-01-02 00:53] VITALS: BP 115/77
== END 2019-01-02 00:53 | disposition home or self-care (01) ==
LOC: MED 23:43
DX: R10.30 Lower abdominal pain, unspecified (principal); R11.0 Nausea; Z79.899 Other long term (current) drug therapy; Z88.5 Allergy status to narcotic agent
CPT/HCPCS: 81002; 81025; 99283; J1885

== ENCOUNTER 2019-02-15 23:50 | Emergency (ER) | payer OTHER ==
[~2019-02-15] VITALS: Ht 160 cm; Wt 86.2 kg
[2019-02-15 23:53] VITALS: BP 114/65
--- NOTE | 2019-02-15 23:57 | NUR ---
TO LOBBY A/W BED, AMBULATORY
--- NOTE | 2019-02-16 00:38 | NUR ---
PT TAKEN TO BED 1.
--- NOTE | 2019-02-16 00:43 | NUR ---
PT IS A 23 Y/O FEMALE WHO PRESENTS TO THE ED C/O VAGINAL BLEEDING/ABD CRAMPING. PER PT TOOK HOME TEST AND CAME UP POSITIVE, LMP 4.18. PT REPORTS 8/10 LOWER ABD PAIN CRAMPING PAIN THAT DOES NOT RADIATE. PT ALSO REPORTS PASSING X1 BLOOD CLOT WITH YELLOW URINE BUT WHEN PT WIPES IT APPEARS PINK. PT DENIES CP, SOB, N/V/D. PT AWAKE AND ALERT, RR EVEN/UNLABORED. PT REPOSITIONED FOR COMFORT, BED IN LOWEST POSITION. ER MD DR. FOWLER NOTIFIED. WILL CONTINUE TO MONITOR.
[2019-02-16 01:14] LABS: APPEARANCE,URINE SL CLOUDY (CLEAR); BILIRUBIN,URINE NEGATIVE (NEGATIVE); BLOOD, URINE NEGATIVE (NEGATIVE); COLOR,URINE YELLOW (YELLOW); LEUKOCYTE ESTERASE ,URINE TRACE (NEGATIVE); NITRITE, URINE NEGATIVE (NEGATIVE); UGLUCOSE NEGATIVE (NEGATIVE)
[2019-02-16 01:14] LABS: BASOPHILS % (AUTO) 0.5 % (0.0-2.0); EOSINOPHILS # (AUTO) 0.2 K/uL (0-0.4); EOSINOPHILS % (AUTO) 1.8 % (0.0-4.0); HEMATOCRIT 36.5 % (36-48); HEMOGLOBIN 12.3 g/dL (12.0-16.0); LYMPHOCYTES % (AUTO) 34.8 % (20.5-51.1); MEAN CORPUSCULAR HEMOGLOBIN 30 pg (27-31); MEAN CORPUSCULAR HGB CONC 34 g/dL (33-37); MEAN CORPUSCULAR VOLUME 87.8 fL (80-94); MONOCYTES # (AUTO) 0.5 K/uL (0.8-1.0); MONOCYTES % (AUTO) 5.6 % (1.7-9.3); NEUTROPHILS # (AUTO) 4.9 K/uL (1.8-7.7); NEUTROPHILS % (AUTO) 57.3 % (42.2-75.2); PLATELET COUNT (AUTO) 228 K/uL (140-450); RED BLOOD CELL COUNT(AUTO) 4.15 MIL/uL (4.20-5.40); RED CELL DISTRIBUTION WIDTH 12.8 % (11.6-13.7); WHITE BLOOD COUNT (AUTO) 8.6 K/uL (4.8-10.8)
--- NOTE | 2019-02-16 01:30 | NUR ---
PT RESTING WITH EYES OPEN. NO NEEDS AT THIS TIME. 0/10 PAIN. VSS. CONTINUE TO MONITOR.
[2019-02-16 01:58] LABS: RBC,URINE 0-5 /HPF (0-5)
--- NOTE | 2019-02-16 02:30 | NUR ---
PT IN BED RESTING WITH EYES CLOSED. 0/1O PAIN. NO NEEDS AT THIS TIME.
[2019-02-16 03:06] VITALS: BP 114/65
--- NOTE | 2019-02-16 03:06 | NUR ---
DISCHARGE PAPERS GIVEN TO PT. 0/1O PAIN. NO VAGINAL BLEEDING. VSS. RX OF ACETAMINOPHEN, MACROBID, AND [facility] VIT GIVEN. SIDE EFFECTS EXPLAINED. EDUCATED ON CARE. PT VERBALLIZED UNDERSTANDING OF DC INSTRUCTIONS. ALL QUESTIONS ANSWERED.
== END 2019-02-16 03:06 | disposition home or self-care (01) ==
LOC: MED 23:50
DX: O20.0 Threatened abortion (principal); O23.41 Unspecified infection of urinary tract in pregnancy, first trimester; Z3A.01 Less than 8 weeks gestation of pregnancy; Z79.899 Other long term (current) drug therapy; Z88.5 Allergy status to narcotic agent
CPT/HCPCS: 36415; 76817; 81001; 81025; 84702; 85025; 86900; 86901; 87086; 99284

== ENCOUNTER 2019-03-08 00:41 | Emergency (ER) | payer OTHER ==
[~2019-03-08] VITALS: Ht 160 cm; Wt 93.4 kg
[2019-03-08 00:45] VITALS: BP 111/63
--- NOTE | 2019-03-08 00:45 | NUR ---
PATIENT AMBULATED TO BED 7
--- NOTE | 2019-03-08 00:55 | NUR ---
23 Y/O F PRESENTED TO ED WITH C/O VAGINAL BLEEDING X2 HOURS. PT IS 10 WEEKS . PT STATED "I WAS AT WORK AND I FELT A SUDDEN CRAMP. I WENT TO THE RESTROOM AND NOTICED A LITTLE PINK DISCHARGE. THEN I KEPT GOING TO THE RESTROOM AND I NOTICED THE DISCHARGE WAS GETTING REDDER." LOWER ABDOMEN CRAMPING. 8/10 PAIN, SHARP. ERMD NOTIFIED. WILL CONTINUE TO MONITOR.
[2019-03-08 01:18] LABS: BASOPHILS % (AUTO) 0.3 % (0.0-2.0); EOSINOPHILS # (AUTO) 0.1 K/uL (0-0.4); EOSINOPHILS % (AUTO) 1.6 % (0.0-4.0); HEMATOCRIT 37.1 % (36-48); HEMOGLOBIN 12.4 g/dL (12.0-16.0); LYMPHOCYTES # (AUTO) 2.4 K/uL (2.5-16.5); LYMPHOCYTES % (AUTO) 30.1 % (20.5-51.1); MEAN CORPUSCULAR HEMOGLOBIN 29 pg (27-31); MEAN CORPUSCULAR HGB CONC 33 g/dL (33-37); MEAN CORPUSCULAR VOLUME 87.6 fL (80-94); MONOCYTES # (AUTO) 0.5 K/uL (0.8-1.0); NEUTROPHILS # (AUTO) 4.9 K/uL (1.8-7.7); PLATELET COUNT (AUTO) 239 K/uL (140-450); RED BLOOD CELL COUNT(AUTO) 4.23 MIL/uL (4.20-5.40); RED CELL DISTRIBUTION WIDTH 12.6 % (11.6-13.7); WHITE BLOOD COUNT (AUTO) 7.9 K/uL (4.8-10.8)
[2019-03-08 01:19] LABS: APPEARANCE,URINE HAZY (CLEAR); BILIRUBIN,URINE NEGATIVE (NEGATIVE); BLOOD, URINE 3+ (NEGATIVE); COLOR,URINE YELLOW (YELLOW); LEUKOCYTE ESTERASE ,URINE TRACE (NEGATIVE); NITRITE, URINE NEGATIVE (NEGATIVE); UGLUCOSE NEGATIVE (NEGATIVE)
[2019-03-08 01:33] LABS: CARBON DIOXIDE 27.5 mmol/L (21-32); CREATININE 0.7 mg/dL (0.6-1.3); POTASSIUM 3.5 mmol/L (3.5-5.1)
[2019-03-08 01:35] LABS: RBC,URINE >100 /HPF (0-5)
[2019-03-08 02:02] LABS: ALBUMIN 3.4 g/dL (3.4-5.0); TOTAL BILIRUBIN 0.2 mg/dL (0.0-1.0)
--- NOTE | 2019-03-08 02:15 | NUR ---
PT ASLEEP. VISIBLE CHEST RISE AND FALL. AROUSABLE TO LIGHT TOUCH AND NAME. WILL CONTINUE TO MONITOR.
--- NOTE | 2019-03-08 03:11 | NUR ---
PT C/O 8/10 CRAMPING PAIN BUT TOLERABLE. VSS AT TIME. WILL CONTINUE TO MONITOR.
[2019-03-08 03:46] VITALS: BP 99/61
== END 2019-03-08 03:46 | disposition home or self-care (01) ==
LOC: MED 00:41
DX: O20.0 Threatened abortion (principal); Z3A.09 9 weeks gestation of pregnancy; Z88.5 Allergy status to narcotic agent; Z79.899 Other long term (current) drug therapy
CPT/HCPCS: 36415; 76801; 80053; 81001; 81025; 84702; 85025; 86900; 86901; 87086; 99284; Q0092

== ENCOUNTER 2019-06-02 15:02 | Emergency (ER) | payer OTHER ==
[~2019-06-02] VITALS: Ht 160 cm; Wt 81.6 kg
[2019-06-02 15:06] VITALS: BP 106/70
--- NOTE | 2019-06-02 15:11 | NUR ---
BIB SELF C/O HEADACHE & N/V X 2 WEEKS. LMP 05/09/19. SKIN IS PINK/WARM/DRY; AAOX4 WITH EVEN AND STEADY GAIT; LUNGS CLEAR BL; HR EVEN AND REGULAR; PT DENIES ANY FEVER, CP, SOB, OR COUGH AT THIS TIME; PATIENT STATES PAIN OF 8/10 AT THIS TIME. PATIENT POSITIONED FOR COMFORT; HOB ELEVATED; BEDRAILS UP X1; BED DOWN. ER MD MADE AWARE OF PT STATUS.
--- NOTE | 2019-06-02 15:14 | NUR ---
HEADACHE WITH N/V X 2 WEEKS
[2019-06-02] MEDS ORDERED: NACL 0.9% 500 ML IV ONE (15:45)
[2019-06-02 16:26] LABS: BASOPHILS % (AUTO) 0.3 % (0.0-2.0); EOSINOPHILS # (AUTO) 0.2 K/uL (0-0.4); EOSINOPHILS % (AUTO) 2.7 % (0.0-4.0); HEMATOCRIT 36.7 % (36-48); HEMOGLOBIN 12.2 g/dL (12.0-16.0); LYMPHOCYTES % (AUTO) 25.5 % (20.5-51.1); MEAN CORPUSCULAR HEMOGLOBIN 28 pg (27-31); MEAN CORPUSCULAR HGB CONC 33 g/dL (33-37); MONOCYTES # (AUTO) 0.5 K/uL (0.8-1.0); MONOCYTES % (AUTO) 6.5 % (1.7-9.3); PLATELET COUNT (AUTO) 233 K/uL (140-450); RED BLOOD CELL COUNT(AUTO) 4.31 MIL/uL (4.20-5.40); RED CELL DISTRIBUTION WIDTH 13.4 % (11.6-13.7); WHITE BLOOD COUNT (AUTO) 7.7 K/uL (4.8-10.8)
[2019-06-02 16:39] LABS: APPEARANCE,URINE CLEAR (CLEAR); BILIRUBIN,URINE NEGATIVE (NEGATIVE); BLOOD, URINE NEGATIVE (NEGATIVE); COLOR,URINE YELLOW (YELLOW); LEUKOCYTE ESTERASE ,URINE NEGATIVE (NEGATIVE); NITRITE, URINE NEGATIVE (NEGATIVE); PH,URINE 6.5 (5.0-9.0); UGLUCOSE NEGATIVE (NEGATIVE)
[2019-06-02 16:57] LABS: ANION GAP 13.8 (8-16); CARBON DIOXIDE 24.2 mmol/L (21-32); CREATININE 0.7 mg/dL (0.6-1.3)
[2019-06-02 17:03] LABS: TOTAL BILIRUBIN 0.2 mg/dL (0.0-1.0)
[2019-06-02 17:13] VITALS: BP 116/78
--- NOTE | 2019-06-02 17:13 | NUR ---
Patient discharged with v/s stable. Written and verbal after care instructions given and explained. Patient alert, oriented and verbalized understanding of instructions. Ambulatory with steady gait. All questions addressed prior to discharge. ID band removed. Patient advised to follow up with PMD. Rx of ACETAMINOPHEN & PLUS TABLET given. Patient educated on indication of medication including possible reaction and side effects. Opportunity to ask questions provided and answered.
== END 2019-06-02 17:13 | disposition home or self-care (01) ==
LOC: MED 15:02
DX: O26.891 Other specified pregnancy related conditions, first trimester (principal); G44.209 Tension-type headache, unspecified, not intractable; Z3A.01 Less than 8 weeks gestation of pregnancy; Z79.899 Other long term (current) drug therapy; Z88.5 Allergy status to narcotic agent
CPT/HCPCS: 36415; 80053; 81003; 81025; 84702; 85025; 96360; 99283; J7030

== ENCOUNTER 2019-06-10 23:17 | Emergency (ER) | payer OTHER ==
[~2019-06-10] VITALS: Ht 160 cm; Wt 92.8 kg
[2019-06-10 23:25] VITALS: BP 103/63
[2019-06-10 23:59] LABS: BASOPHILS % (AUTO) 0.3 % (0.0-2.0); EOSINOPHILS # (AUTO) 0.1 K/uL (0-0.4); EOSINOPHILS % (AUTO) 1.7 % (0.0-4.0); HEMATOCRIT 37.5 % (36-48); HEMOGLOBIN 12.2 g/dL (12.0-16.0); LYMPHOCYTES # (AUTO) 2.6 K/uL (2.5-16.5); MEAN CORPUSCULAR HEMOGLOBIN 28 pg (27-31); MEAN CORPUSCULAR HGB CONC 32 g/dL (33-37); MONOCYTES # (AUTO) 0.5 K/uL (0.8-1.0); MONOCYTES % (AUTO) 5.3 % (1.7-9.3); NEUTROPHILS # (AUTO) 5.3 K/uL (1.8-7.7); NEUTROPHILS % (AUTO) 62.7 % (42.2-75.2); PLATELET COUNT (AUTO) 238 K/uL (140-450); RED BLOOD CELL COUNT(AUTO) 4.36 MIL/uL (4.20-5.40); RED CELL DISTRIBUTION WIDTH 13.3 % (11.6-13.7); WHITE BLOOD COUNT (AUTO) 8.5 K/uL (4.8-10.8)
[2019-06-11] LABS: APPEARANCE,URINE CLEAR (CLEAR); BILIRUBIN,URINE NEGATIVE (NEGATIVE); BLOOD, URINE NEGATIVE (NEGATIVE); COLOR,URINE YELLOW (YELLOW); LEUKOCYTE ESTERASE ,URINE TRACE (NEGATIVE); NITRITE, URINE NEGATIVE (NEGATIVE); UGLUCOSE NEGATIVE (NEGATIVE)
[2019-06-11 00:12] LABS: ANION GAP 12.2 (8-16); CARBON DIOXIDE 25.7 mmol/L (21-32); CREATININE 0.7 mg/dL (0.6-1.3); POTASSIUM 3.9 mmol/L (3.5-5.1)
[2019-06-11 00:17] LABS: ALBUMIN 3.2 g/dL (3.4-5.0); TOTAL BILIRUBIN 0.1 mg/dL (0.0-1.0)
[2019-06-11 00:21] LABS: RBC,URINE 0-5 /HPF (0-5)
[2019-06-11 03:10] VITALS: BP 96/52
== END 2019-06-11 03:11 | disposition home or self-care (01) ==
LOC: MED 23:17
DX: O21.8 Other vomiting complicating pregnancy (principal); O23.41 Unspecified infection of urinary tract in pregnancy, first trimester; Z88.5 Allergy status to narcotic agent; Z79.899 Other long term (current) drug therapy; Z3A.01 Less than 8 weeks gestation of pregnancy
CPT/HCPCS: 36415; 76705; 76817; 80053; 81001; 83690; 84702; 85025; 87086; 99284; Q0092

== ENCOUNTER 2019-07-15 13:18 | Emergency (ER) | payer OTHER ==
[~2019-07-15] VITALS: Ht 167.6 cm; Wt 93.0 kg
[2019-07-15 13:25] VITALS: BP 108/68
[2019-07-15] MEDS ORDERED: NACL 0.9% 1,000 ML IV SCH (14:17)
[2019-07-15] MEDS ORDERED: ACETAMINOPHEN 325 MG TAB PO ONE (14:20)
[2019-07-15] MEDS ORDERED: ONDANSETRON 4 MG/2 ML VIAL IVP ONE (14:20)
[2019-07-15 15:03] LABS: BASOPHILS % (AUTO) 0.2 % (0.0-2.0); EOSINOPHILS # (AUTO) 0.1 K/uL (0-0.4); EOSINOPHILS % (AUTO) 1.4 % (0.0-4.0); HEMATOCRIT 39.2 % (36-48); HEMOGLOBIN 12.9 g/dL (12.0-16.0); LYMPHOCYTES # (AUTO) 1.4 K/uL (2.5-16.5); LYMPHOCYTES % (AUTO) 21.2 % (20.5-51.1); MEAN CORPUSCULAR HEMOGLOBIN 28 pg (27-31); MEAN CORPUSCULAR HGB CONC 33 g/dL (33-37); MEAN CORPUSCULAR VOLUME 85.9 fL (80-94); MONOCYTES # (AUTO) 0.4 K/uL (0.8-1.0); MONOCYTES % (AUTO) 5.7 % (1.7-9.3); NEUTROPHILS # (AUTO) 4.8 K/uL (1.8-7.7); NEUTROPHILS % (AUTO) 71.5 % (42.2-75.2); PLATELET COUNT (AUTO) 222 K/uL (140-450); RED BLOOD CELL COUNT(AUTO) 4.57 MIL/uL (4.20-5.40); RED CELL DISTRIBUTION WIDTH 14.2 % (11.6-13.7); WHITE BLOOD COUNT (AUTO) 6.8 K/uL (4.8-10.8)
[2019-07-15 15:23] LABS: ANION GAP 13.9 (8-16); CARBON DIOXIDE 23.8 mmol/L (21-32); CREATININE 0.5 mg/dL (0.6-1.3); POTASSIUM 3.7 mmol/L (3.5-5.1)
[2019-07-15 15:24] LABS: TOTAL BILIRUBIN 0.2 mg/dL (0.0-1.0)
[2019-07-15 15:24] LABS: APPEARANCE,URINE CLEAR (CLEAR); BILIRUBIN,URINE NEGATIVE (NEGATIVE); BLOOD, URINE NEGATIVE (NEGATIVE); COLOR,URINE YELLOW (YELLOW); LEUKOCYTE ESTERASE ,URINE NEGATIVE (NEGATIVE); NITRITE, URINE NEGATIVE (NEGATIVE); UGLUCOSE NEGATIVE (NEGATIVE)
[2019-07-15] MEDS ORDERED: cefTRIAXone 1,000 MG VIAL ONE (16:27)
[2019-07-15 17:27] VITALS: BP 113/72
[2019-07-17 06:15] LABS: CHLAMYDIA TRACHOMATIS AMP DNA Negative (Negative)
== END 2019-07-15 17:27 | disposition home or self-care (01) ==
LOC: MED 13:18
DX: O26.891 Other specified pregnancy related conditions, first trimester (principal); R10.30 Lower abdominal pain, unspecified; R11.0 Nausea; O98.311 Other infections with a predominantly sexual mode of transmission complicating pregnancy, first trimester; A64 Unspecified sexually transmitted disease; Z3A.09 9 weeks gestation of pregnancy; Z79.899 Other long term (current) drug therapy; Z88.5 Allergy status to narcotic agent
CPT/HCPCS: 36415; 76801; 80053; 81003; 81025; 82150; 83690; 85025; 87210; 87491; 96365; 96375; 99284; J0696; J2405; J7030; J7060; Q0092

== ENCOUNTER 2019-09-07 12:15 | Emergency (ER) | payer OTHER ==
[~2019-09-07] VITALS: Ht 160 cm; Wt 92.5 kg
[2019-09-07 12:30] VITALS: BP 102/61
--- NOTE | 2019-09-07 12:30 | NUR ---
PT AMBULATED TO BED 10.
[2019-09-07] MEDS ORDERED: NACL 0.9% 1,000 ML IV ONE (13:15)
--- NOTE | 2019-09-07 13:15 | NUR ---
ERMD AT BEDSIDE
[2019-09-07 13:55] LABS: BASOPHILS % (AUTO) 0.3 % (0.0-2.0); EOSINOPHILS # (AUTO) 0.2 K/uL (0-0.4); EOSINOPHILS % (AUTO) 1.7 % (0.0-4.0); HEMATOCRIT 36.8 % (36-48); HEMOGLOBIN 12.2 g/dL (12.0-16.0); LYMPHOCYTES # (AUTO) 1.3 K/uL (2.5-16.5); LYMPHOCYTES % (AUTO) 14.4 % (20.5-51.1); MEAN CORPUSCULAR HEMOGLOBIN 29 pg (27-31); MEAN CORPUSCULAR HGB CONC 33 g/dL (33-37); MEAN CORPUSCULAR VOLUME 86.9 fL (80-94); MONOCYTES # (AUTO) 0.5 K/uL (0.8-1.0); MONOCYTES % (AUTO) 5.4 % (1.7-9.3); NEUTROPHILS # (AUTO) 7.3 K/uL (1.8-7.7); NEUTROPHILS % (AUTO) 78.2 % (42.2-75.2); PLATELET COUNT (AUTO) 198 K/uL (140-450); RED BLOOD CELL COUNT(AUTO) 4.24 MIL/uL (4.20-5.40); RED CELL DISTRIBUTION WIDTH 13.8 % (11.6-13.7); WHITE BLOOD COUNT (AUTO) 9.3 K/uL (4.8-10.8)
--- NOTE | 2019-09-07 13:55 | NUR ---
BEDSIDE ULTRASOUND COMPLETED
[2019-09-07 14:36] LABS: ALBUMIN 2.9 g/dL (3.4-5.0); ANION GAP 14.3 (8-16); CARBON DIOXIDE 23.3 mmol/L (21-32); CREATININE 0.5 mg/dL (0.6-1.3); POTASSIUM 3.6 mmol/L (3.5-5.1); TOTAL BILIRUBIN 0.2 mg/dL (0.0-1.0)
[2019-09-07 16:30] VITALS: BP 111/64
--- NOTE | 2019-09-07 16:31 | NUR ---
Patient discharged with v/s stable. Written and verbal after care instructions given and explained. Patient alert, oriented and verbalized understanding of instructions. Ambulatory with to car. All questions addressed prior to discharge. ID band removed. Patient advised to follow up with PMD. Rx of FLAGYL given. Patient educated on indication of medication including possible reaction and side effects. Opportunity to ask questions provided and answered. PROVIDED PT WITH COPY OF U/S RESULTS
[2019-09-07 16:49] LABS: BILIRUBIN,URINE NEGATIVE (NEGATIVE); BLOOD, URINE NEGATIVE (NEGATIVE); COLOR,URINE YELLOW (YELLOW); LEUKOCYTE ESTERASE ,URINE 1+ (NEGATIVE); NITRITE, URINE NEGATIVE (NEGATIVE); UGLUCOSE NEGATIVE (NEGATIVE)
[2019-09-07 16:51] LABS: APPEARANCE,URINE HAZY (CLEAR)
[2019-09-07 17:03] LABS: RBC,URINE NONE SEEN /HPF (0-5); WBC,URINE 0-5 /HPF (0-5)
[2019-09-10 08:07] LABS: CHLAMYDIA TRACHOMATIS AMP DNA Negative (Negative)
== END 2019-09-07 16:31 | disposition home or self-care (01) ==
LOC: MED 12:15
DX: O26.92 Pregnancy related conditions, unspecified, second trimester (principal); R10.9 Unspecified abdominal pain; O26.852 Spotting complicating pregnancy, second trimester; O23.592 Infection of other part of genital tract in pregnancy, second trimester; Z3A.17 17 weeks gestation of pregnancy; Z79.899 Other long term (current) drug therapy; Z88.5 Allergy status to narcotic agent
CPT/HCPCS: 36415; 76805; 80053; 81001; 81025; 84702; 85025; 86900; 86901; 87086; 87210; 87491; 96360; 99284; J7030; Q0092

== ENCOUNTER 2020-05-31 17:55 | Emergency (ER) | payer OTHER ==
[~2020-05-31] VITALS: Ht 167.6 cm; Wt 98.9 kg
[2020-05-31 18:02] VITALS: BP 142/78
--- NOTE | 2020-05-31 18:10 | NUR ---
Urine sample obtained, urine dipped, normal. aware. HCG NEGATIVE. Sent to lab
--- NOTE | 2020-05-31 18:12 | NUR ---
BIB self from home with c/o right lower abdomen/groin pain 10/ x 3 days Has been taking tylenol w/o relief. Allergy morphine, PMH none. G 4 P 4 A, A, Ox4, cooperative, standing, states she can't lie or sit due to the pain Resp even and unlabored, in NAD, VVS Moving all exts w/o difficulty. 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
[2020-05-31] MEDS ORDERED: KETOROLAC 60 MG/2 ML VIAL IM ONE (18:20)
--- NOTE | 2020-05-31 18:25 | NUR ---
IV started left forearm #20g, blood drawn and sent to lab. Patient tolerated well
[2020-05-31] MEDS ORDERED: NACL 0.9% 1,000 ML IV SCH (18:26)
[2020-05-31] MEDS ORDERED: ONDANSETRON 4 MG/2 ML VIAL IVP ONE (18:30)
[2020-05-31] MEDS ORDERED: KETOROLAC 30 MG/ML VIAL IVP ONE (18:30)
--- NOTE | 2020-05-31 18:30 | NUR ---
IVF NS 1000cc started wide open. Meds given
[2020-05-31 18:44] LABS: BASOPHILS # (AUTO) 0.1 K/uL (0.00-0.22); EOSINOPHILS # (AUTO) 0.2 K/uL (0-0.4); EOSINOPHILS % (AUTO) 1.9 % (0.0-4.0); HEMATOCRIT 38.5 % (36-48); HEMOGLOBIN 12.5 g/dL (12.0-16.0); LYMPHOCYTES # (AUTO) 2.7 K/uL (2.5-16.5); MEAN CORPUSCULAR HEMOGLOBIN 26 pg (27-31); MEAN CORPUSCULAR HGB CONC 33 g/dL (33-37); MEAN CORPUSCULAR VOLUME 80.7 fL (80-94); MONOCYTES # (AUTO) 0.5 K/uL (0.8-1.0); MONOCYTES % (AUTO) 5.7 % (1.7-9.3); NEUTROPHILS # (AUTO) 5.5 K/uL (1.8-7.7); NEUTROPHILS % (AUTO) 61.4 % (42.2-75.2); PLATELET COUNT (AUTO) 286 K/uL (140-450); RED BLOOD CELL COUNT(AUTO) 4.76 MIL/uL (4.20-5.40); RED CELL DISTRIBUTION WIDTH 14.8 % (11.6-13.7); WHITE BLOOD COUNT (AUTO) 8.9 K/uL (4.8-10.8)
[2020-05-31 18:55] LABS: BILIRUBIN,URINE NEGATIVE (NEGATIVE); BLOOD, URINE TRACE-I (NEGATIVE); COLOR,URINE YELLOW (YELLOW); LEUKOCYTE ESTERASE ,URINE NEGATIVE (NEGATIVE); NITRITE, URINE NEGATIVE (NEGATIVE); UGLUCOSE NEGATIVE (NEGATIVE)
[2020-05-31 18:58] LABS: APPEARANCE,URINE CLEAR (CLEAR)
[2020-05-31 19:00] LABS: ALBUMIN 3.7 g/dL (3.4-5.0); ANION GAP 16.5 (8-16); CARBON DIOXIDE 22.4 mmol/L (21-32); CREATININE 0.8 mg/dL (0.6-1.3); POTASSIUM 3.9 mmol/L (3.5-5.1); TOTAL BILIRUBIN 0.2 mg/dL (0.0-1.0)
--- NOTE | 2020-05-31 19:05 | NUR ---
Patient to abdominal CT scan via w/c with radiology attendant
[2020-05-31 19:07] LABS: RBC,URINE 0-5 /HPF (0-5); WBC,URINE 0-5 /HPF (0-5)
--- NOTE | 2020-05-31 19:17 | NUR ---
Detailed report given to CK Souza for night baker. Background given, meds and orders reviewed, questions answered
--- NOTE | 2020-05-31 19:39 | NUR ---
PT AWAKE SITTING UP IN [place], AAOX4, 5/10 ABD PAIN TO RLQ, TOLERATING @ THIS TIME. PT STATES SHE DOES NOT WANT PAIN MED @ THIS TIME. NO OTHER ACUTE DISTRESS NOTED. WILL CONTINUE TO OBSERVE.
--- NOTE | 2020-05-31 20:30 | NUR ---
Dr. Quiñonez examining patient.
[2020-05-31 21:14] VITALS: BP 118/76
--- NOTE | 2020-06-01 10:46 | NUR ---
LATE ENTRY- Normal saline 0.9% IV fluids discontinued at 194
== END 2020-05-31 21:14 | disposition home or self-care (01) ==
LOC: MED 17:55
DX: R10.31 Right lower quadrant pain (principal); R11.0 Nausea; Z79.899 Other long term (current) drug therapy; Z88.5 Allergy status to narcotic agent; Z98.890 Other specified postprocedural states
CPT/HCPCS: 36415; 74176; 80053; 81001; 83690; 85025; 96361; 96374; 96375; 99284; J1885; J2405; J7030

== ENCOUNTER 2020-08-11 23:46 | Emergency (ER) | payer OTHER ==
[~2020-08-11] VITALS: Ht 162.6 cm; Wt 95.3 kg
[2020-08-12 00:02] VITALS: BP 113/74
--- NOTE | 2020-08-12 00:12 | NUR ---
PATIENT PRESENTS TO ED WITH C/O LEFT ANKLE PAIN . PT STATES FELL FROM [place] . DENIES N/V/D; SKIN IS PINK/WARM/DRY; AAOX4 WITH EVEN AND STEADY GAIT; LUNGS CLEAR BL; HR EVEN AND REGULAR; PT DENIES ANY FEVER, CP, SOB, OR COUGH AT THIS TIME; PATIENT STATES PAIN OF 10/10 AT THIS TIME; VSS; PATIENT POSITIONED FOR COMFORT; HOB ELEVATED; BEDRAILS UP X2; BED DOWN. ER MD MADE AWARE OF PT STATUS.
[2020-08-12] MEDS ORDERED: HYDROcodone/APAP 5/325 MG 1 TAB TAB PO ONE (00:25)
--- NOTE | 2020-08-12 02:28 | NUR ---
PTS LEFT ANKEL WAS PLACED IN A SHORT POSTERIOR SHORT LEG SPLINT. PTS PMSC WNL. PT WAS ALSO GIVEN CRUTCHES. PT SHOWED GOOD USE OF CRUTCHES.
[2020-08-12 02:30] VITALS: BP 113/74
--- NOTE | 2020-08-12 02:30 | NUR ---
Patient discharged with CRUTCHES, v/s stable. Written and verbal after care instructions given and explained. Patient alert, oriented and verbalized understanding of instructions. CRUTCH WALKING with steady gait. All questions addressed prior to discharge. ID band removed. Patient advised to follow up with PMD. Rx of MOTRIN given. Patient educated on indication of medication including possible reaction and side effects. Opportunity to ask questions provided and answered.
== END 2020-08-12 02:30 | disposition home or self-care (01) ==
LOC: MED 23:46
DX: M79.672 Pain in left foot (principal); Z88.6 Allergy status to analgesic agent; Z79.899 Other long term (current) drug therapy; W19.XXXA Unspecified fall, initial encounter; Y93.89 Activity, other specified; Y92.89 Other specified places as the place of occurrence of the external cause; Y99.8 Other external cause status
CPT/HCPCS: 29515; 73610; 73630; 81025; 99284

== ENCOUNTER 2020-11-02 08:34 | Emergency (ER) | payer OTHER ==
[~2020-11-02] VITALS: Ht 162.6 cm; Wt 107.5 kg
[2020-11-02 08:37] VITALS: BP 113/71
--- NOTE | 2020-11-02 08:40 | NUR ---
PT AMBULATED TO BED 11 WITH STEADY/EVEN GAIT.
--- NOTE | 2020-11-02 09:00 | NUR ---
DR. GILLIS IS EVALUATING PATIENT AT BEDSIDE.
--- NOTE | 2020-11-02 09:03 | NUR ---
LAB AT BEDSIDE
--- NOTE | 2020-11-02 09:05 | NUR ---
25 Y/O FEMALE BROUGHT IN FROM HOME WITH C/C LLQ ABDOMINAL PAIN. PT STATES LLQ PAIN X 1 WEEK AND STATES YESTERDAY NIGHT SHE EXPERIENCED SUDDEN ONSET OF PAIN. PT DESCRIBES PAIN /, TEARING/CONSTANT, NON-RADIATING PAIN. PT STATES SHE TOOK TYLENOL FOR THE PAIN THIS MORNING IWTH NO RELIEF. PT STATES SHE HAD AN IMPLANT PLACED ON HER LFET UPPER ARM AND REMOVED 09/04 DUE TO NUMBNESS TO HER ARM. PT DENIES BLEEDING, DIZZINESS, N/V/D, BLURRY VISION, HEADACHE, SOB, CHES TPAIN. LAST MENSTRUAL PERIOD 08/12/20. PT STATES SHE HAS NOT DONE A TEST RECENTLY. PT PLACED ONTO DEMOGRAPHIC ANALYST, BED LOCKED IN LOWEST POSITION, SIDE RAILS X 1, CALL LIGHT IN REACH. PMH: HERNIA @ MED[facility]: KISH[facility] [place]
--- NOTE | 2020-11-02 09:07 | NUR ---
URINE SAMPLE COLLECTED, HANDED TO MADISON GRULLON TECH IN ER.
[2020-11-02 09:16] LABS: BASOPHILS % (AUTO) 0.5 % (0.0-2.0); EOSINOPHILS # (AUTO) 0.1 K/uL (0-0.4); EOSINOPHILS % (AUTO) 1.9 % (0.0-4.0); HEMOGLOBIN 12.2 g/dL (12.0-16.0); LYMPHOCYTES # (AUTO) 1.6 K/uL (2.5-16.5); LYMPHOCYTES % (AUTO) 28.2 % (20.5-51.1); MEAN CORPUSCULAR HEMOGLOBIN 27 pg (27-31); MEAN CORPUSCULAR HGB CONC 33 g/dL (33-37); MEAN CORPUSCULAR VOLUME 81.5 fL (80-94); MONOCYTES # (AUTO) 0.3 K/uL (0.8-1.0); MONOCYTES % (AUTO) 6.2 % (1.7-9.3); NEUTROPHILS # (AUTO) 3.6 K/uL (1.8-7.7); NEUTROPHILS % (AUTO) 63.2 % (42.2-75.2); PLATELET COUNT (AUTO) 237 K/uL (140-450); RED BLOOD CELL COUNT(AUTO) 4.54 MIL/uL (4.20-5.40); RED CELL DISTRIBUTION WIDTH 14.7 % (11.6-13.7); WHITE BLOOD COUNT (AUTO) 5.6 K/uL (4.8-10.8)
--- NOTE | 2020-11-02 09:30 | NUR ---
US AT BEDSIDE
[2020-11-02 09:34] LABS: APPEARANCE,URINE CLEAR (CLEAR); BILIRUBIN,URINE NEGATIVE (NEGATIVE); BLOOD, URINE NEGATIVE (NEGATIVE); COLOR,URINE YELLOW (YELLOW); LEUKOCYTE ESTERASE ,URINE NEGATIVE (NEGATIVE); NITRITE, URINE NEGATIVE (NEGATIVE); UGLUCOSE NEGATIVE (NEGATIVE)
[2020-11-02 09:46] LABS: ALBUMIN 3.1 g/dL (3.4-5.0); ANION GAP 13.5 (8-16); CARBON DIOXIDE 22.4 mmol/L (21-32); CREATININE 0.6 mg/dL (0.6-1.3); POTASSIUM 3.9 mmol/L (3.5-5.1); TOTAL BILIRUBIN 0.3 mg/dL (0.0-1.0)
--- NOTE | 2020-11-02 10:29 | NUR ---
PT RESTING IN POSITION OF COMFORT IN SEMI-FOWLERS POSITION. PT STATES PAIN 9/10 AFTER ULTRASOUND. NO OBVIOUS DISTRESS NOTED. BED LOCKED IN LOWEST POSITION, SIDE RAILS X 1, CALL LIGHT IN REACH.
--- NOTE | 2020-11-02 10:35 | NUR ---
DR. GILLIS MADE AWARE OF 9/10 PAIN AT THIS TIME.
--- NOTE | 2020-11-02 10:43 | NUR ---
PT GIVEN VERBAL CONSENT FOR NORCO PER ERMD REQUEST. ERMD MADE AWARE, ORDERS TO BE PLACED.
[2020-11-02] MEDS ORDERED: HYDROcodone/APAP 5/325 MG 1 TAB TAB PO ONE (10:45)
--- NOTE | 2020-11-02 11:20 | NUR ---
PT STATES POSITIVE RELIEF AFTER PAIN MEDICATION. PT STATES PAIN 3/10. ALL PT NEEDS MET AT THIS TIME. DEICER INSPECTOR ELECTRIC IN PLACE. BED LOCKED IN LOWEST POSITION, SIDE RAILS X 1, CALL LIGHT IN REACH.
--- NOTE | 2020-11-02 12:08 | NUR ---
DR. GILLIS IS REEVALUATING PATIENT AT BEDSIDE.
--- NOTE | 2020-11-02 12:11 | NUR ---
PT RESTING IN POSITION OF COMFORT IN SEMI-FOWLERS POSITION. PT STATES NAUSEA AND REFUSES NAUSEA MEDICATION; CRACKERS PROVIDED PER PT REQUEST. NO OBVIOUS DISTRESS NOTED. BED LOCKED IN LOWEST POSITION, SIDE RAILS X 1, CALL LIGHT IN REACH.
[2020-11-02 12:20] VITALS: BP 96/45
--- NOTE | 2020-11-02 12:20 | NUR ---
Patient discharged with v/s stable. Written and verbal after care instructions given and explained. Patient alert, oriented and verbalized understanding of instructions. Ambulatory with steady gait. All questions addressed prior to discharge. ID band removed. Patient advised to follow up with PMD. Rx of ZOFRAN, NORCO 5MG-325MG given. Patient educated on indication of medication including possible reaction and side effects. Opportunity to ask questions provided and answered.
== END 2020-11-02 12:20 | disposition home or self-care (01) ==
LOC: MED 08:34
DX: O26.891 Other specified pregnancy related conditions, first trimester (principal); R10.32 Left lower quadrant pain; Z88.5 Allergy status to narcotic agent; Z79.899 Other long term (current) drug therapy
CPT/HCPCS: 36415; 76830; 76856; 80053; 81003; 81025; 84702; 85025; 99285

== ENCOUNTER 2020-12-07 15:25 | Emergency (ER) | payer OTHER ==
[~2020-12-07] VITALS: Ht 162.6 cm; Wt 106.6 kg
[2020-12-07 15:36] VITALS: BP 102/61
--- NOTE | 2020-12-07 15:37 | NUR ---
PT AMBULATED TO BATHROOM, STEADY GAIT.
--- NOTE | 2020-12-07 15:53 | NUR ---
ER MD at bed side evaluating patient
[2020-12-07] MEDS ORDERED: ONDANSETRON 4 MG/2 ML VIAL IVP ONE (16:00)
[2020-12-07] MEDS ORDERED: ACETAMINOPHEN 325 MG TAB PO ONE (16:00)
[2020-12-07] MEDS ORDERED: NACL 0.9% 1,000 ML IV SCH (16:00)
[2020-12-07] MEDS ORDERED: ALUMINUM HYD/MAG/SIMETHICONE 30 ML, DICYCLOMINE HCL LIQUID 20 MG, LIDOCAINE VISCOUS 2% ... PO ONE ×3 (16:00)
--- NOTE | 2020-12-07 16:22 | NUR ---
ultrasound at bedside.
[2020-12-07] MEDS ORDERED: LIDOCAINE VISCOUS 2% 20 ML UDC ONE (16:23)
[2020-12-07] MEDS ORDERED: ALUMINUM HYD/MAG/SIMETHICONE 30 ML UDC ONE (16:23)
[2020-12-07] MEDS ORDERED: DICYCLOMINE HCL LIQUID 10 MG/5 ML UDC ONE (16:24)
[2020-12-07 16:38] LABS: BASOPHILS # (AUTO) 0.1 K/uL (0.00-0.22); BASOPHILS % (AUTO) 1.5 % (0.0-2.0); EOSINOPHILS # (AUTO) 0.1 K/uL (0-0.4); EOSINOPHILS % (AUTO) 1.4 % (0.0-4.0); HEMOGLOBIN 11.6 g/dL (12.0-16.0); LYMPHOCYTES # (AUTO) 1.5 K/uL (2.5-16.5); LYMPHOCYTES % (AUTO) 20.8 % (20.5-51.1); MEAN CORPUSCULAR HEMOGLOBIN 28 pg (27-31); MEAN CORPUSCULAR HGB CONC 33 g/dL (33-37); MONOCYTES # (AUTO) 0.4 K/uL (0.8-1.0); MONOCYTES % (AUTO) 5.8 % (1.7-9.3); NEUTROPHILS # (AUTO) 4.9 K/uL (1.8-7.7); NEUTROPHILS % (AUTO) 70.5 % (42.2-75.2); PLATELET COUNT (AUTO) 226 K/uL (140-450); RED BLOOD CELL COUNT(AUTO) 4.22 MIL/uL (4.20-5.40); RED CELL DISTRIBUTION WIDTH 14.9 % (11.6-13.7)
[2020-12-07 16:55] LABS: ANION GAP 13.7 (8-16); CREATININE 0.6 mg/dL (0.6-1.3); POTASSIUM 3.7 mmol/L (3.5-5.1); TOTAL BILIRUBIN 0.2 mg/dL (0.0-1.0)
--- NOTE | 2020-12-07 17:05 | NUR ---
PT AMBULATED TO BATHROOM, STEADY GAIT.
--- NOTE | 2020-12-07 18:37 | NUR ---
DR. REED AT BEDSIDE REEVALUATING PT.
--- NOTE | 2020-12-07 18:40 | NUR ---
PT AMBULATED TO BATHROOM WITH STEADY GAIT.
[2020-12-07] MEDS ORDERED: PYRI25TA15 PO (18:55)
[2020-12-07] MEDS ORDERED: ONDA4TAB PO (18:55)
[2020-12-07] MEDS ORDERED: FAMO-90 PO (18:55)
[2020-12-07 19:15] VITALS: BP 102/61
--- NOTE | 2020-12-07 19:15 | NUR ---
Patient discharged with v/s stable. Written and verbal after care instructions given and explained. Patient alert, oriented and verbalized understanding of instructions. Ambulatory with steady gait. All questions addressed prior to discharge. ID band removed. Patient advised to follow up with PMD. Rx of PEPCID, ZOFRAN, AND PYRIDOXINE given. Patient educated on indication of medication including possible reaction and side effects. Opportunity to ask questions provided and answered.
== END 2020-12-07 19:15 | disposition home or self-care (01) ==
LOC: MED 15:25
DX: O21.8 Other vomiting complicating pregnancy (principal); O99.611 Diseases of the digestive system complicating pregnancy, first trimester; K29.70 Gastritis, unspecified, without bleeding; Z3A.09 9 weeks gestation of pregnancy; Z88.5 Allergy status to narcotic agent; Z79.899 Other long term (current) drug therapy
CPT/HCPCS: 36415; 76705; 76817; 80053; 81002; 83690; 85025; 96361; 96374; 99285; J2405; J7030

== ENCOUNTER 2021-02-08 17:26 | Emergency (ER) | payer OTHER ==
[~2021-02-08] VITALS: Ht 162.6 cm; Wt 110.7 kg
[~2021-02-08 17:26] MED LIST changes: +FAMO-90 PO; +ONDA4TAB PO; +PYRI25TA15 PO
[2021-02-08 17:33] VITALS: BP 132/74
[2021-02-08] MEDS ORDERED: ONDANSETRON 4 MG ODT PO ONE (17:40)
[2021-02-08] MEDS ORDERED: ONDA8TAB87 PO (18:10)
[2021-02-08] MEDS ORDERED: NITR100C7 PO (18:10)
[2021-02-08 18:28] VITALS: BP 132/74
== END 2021-02-08 18:28 | disposition home or self-care (01) ==
LOC: MED 17:26
DX: O23.42 Unspecified infection of urinary tract in pregnancy, second trimester (principal); O21.8 Other vomiting complicating pregnancy; Z3A.18 18 weeks gestation of pregnancy; Z88.5 Allergy status to narcotic agent; Z79.899 Other long term (current) drug therapy
CPT/HCPCS: 81002; 81025; 99283; Q0162

== ENCOUNTER 2021-05-31 22:05 | Inpatient (IN) | payer OTHER ==
[~2021-05-31] VITALS: Ht 162.6 cm; Wt 108.9 kg
[~2021-05-31 22:05] MED LIST changes: +NITR100C7 PO; +ONDA8TAB87 PO
[2021-05-31] MEDS ORDERED: PANTOPRAZOLE 40 MG INJ VIAL IVP SCH (22:50)
[2021-05-31] MEDS ORDERED: FAMOTIDINE 20 MG/2 ML VIAL IV SCH (22:50)
[2021-05-31 23:13] VITALS: BP 115/69
[2021-05-31 23:35] LABS: APPEARANCE,URINE SL CLOUDY (CLEAR); BILIRUBIN,URINE NEGATIVE (NEGATIVE); BLOOD, URINE NEGATIVE (NEGATIVE); COLOR,URINE YELLOW (YELLOW); LEUKOCYTE ESTERASE ,URINE 1+ (NEGATIVE); NITRITE, URINE NEGATIVE (NEGATIVE); PH,URINE 6.5 (5.0-9.0); UGLUCOSE NEGATIVE (NEGATIVE)
[2021-05-31 23:36] LABS: BASOPHILS % (AUTO) 0.3 % (0.0-2.0); EOSINOPHILS % (AUTO) 0.4 % (0.0-4.0); HEMATOCRIT 22.3 % (36-48); LYMPHOCYTES # (AUTO) 1.9 K/uL (2.5-16.5); LYMPHOCYTES % (AUTO) 24.7 % (20.5-51.1); MEAN CORPUSCULAR HEMOGLOBIN 23 pg (27-31); MEAN CORPUSCULAR HGB CONC 32 g/dL (33-37); MEAN CORPUSCULAR VOLUME 73.7 fL (80-94); MONOCYTES # (AUTO) 0.6 K/uL (0.8-1.0); MONOCYTES % (AUTO) 7.7 % (1.7-9.3); NEUTROPHILS # (AUTO) 5.1 K/uL (1.8-7.7); NEUTROPHILS % (AUTO) 66.9 % (42.2-75.2); PLATELET COUNT (AUTO) 184 K/uL (140-450); RED BLOOD CELL COUNT(AUTO) 3.02 MIL/uL (4.20-5.40); RED CELL DISTRIBUTION WIDTH 15.9 % (11.6-13.7); WHITE BLOOD COUNT (AUTO) 7.7 K/uL (4.8-10.8)
[2021-05-31 23:49] LABS: RBC,URINE 0-5 /HPF (0-5)
[2021-05-31 23:59] LABS: ALBUMIN 2.1 g/dL (3.4-5.0); ANION GAP 13.4 (8-16); CARBON DIOXIDE 22.3 mmol/L (21-32); CREATININE 0.8 mg/dL (0.6-1.3); POTASSIUM 3.7 mmol/L (3.5-5.1); TOTAL BILIRUBIN 0.1 mg/dL (0.0-1.0)
[2021-06-01] MEDS ORDERED: IRON SUCROSE COMPLEX 100 MG/5 ML VIAL IVP ONE (02:00)
[2021-06-01] MEDS ORDERED: IRON SUCROSE COMPLEX 200 MG in NACL 0.9% 100 ML IV SCH (02:18)
[2021-06-01] MEDS ORDERED: IRON SUCROSE COMPLEX 100 MG/5 ML VIAL ONE (02:28)
[2021-06-01] MEDS ORDERED: HYDROmorphone 1 MG/ML AMP IVP PRN ×2 (06:45→09:10)
[2021-06-01] MEDS ORDERED: METOCLOPRAMIDE 10 MG/2 ML INJ VIAL IVP PRN (06:45)
[2021-06-01] MEDS ORDERED: diphenhydrAMINE 50 MG/ML VIAL IVP SCH (06:45)
[2021-06-01] MEDS: LACTATED RINGERS 1,000 ML IV SCH ×2 (08:05→11:51)
[2021-06-01 08:41] LABS: BASOPHILS % (AUTO) 0.2 % (0.0-2.0); EOSINOPHILS % (AUTO) 0.3 % (0.0-4.0); HEMATOCRIT 23.1 % (36-48); HEMOGLOBIN 7.2 g/dL (12.0-16.0); LYMPHOCYTES # (AUTO) 1.6 K/uL (2.5-16.5); LYMPHOCYTES % (AUTO) 22.4 % (20.5-51.1); MEAN CORPUSCULAR HEMOGLOBIN 23 pg (27-31); MEAN CORPUSCULAR HGB CONC 31 g/dL (33-37); MEAN CORPUSCULAR VOLUME 73.6 fL (80-94); MONOCYTES # (AUTO) 0.4 K/uL (0.8-1.0); MONOCYTES % (AUTO) 5.5 % (1.7-9.3); NEUTROPHILS # (AUTO) 5.2 K/uL (1.8-7.7); NEUTROPHILS % (AUTO) 71.6 % (42.2-75.2); PLATELET COUNT (AUTO) 180 K/uL (140-450); RED BLOOD CELL COUNT(AUTO) 3.14 MIL/uL (4.20-5.40); RED CELL DISTRIBUTION WIDTH 16.1 % (11.6-13.7); WHITE BLOOD COUNT (AUTO) 7.2 K/uL (4.8-10.8)
--- NOTE | 2021-06-01 08:48 | NUR ---
PATIENT HAS BEEN SCREENED AND CATEGORIZED LOW NUTRITION RISK. PATIENT WILL BE SEEN WITHIN 7 DAYS OF ADMISSION. 06/07/[address]
[2021-06-01] MEDS ORDERED: HYDROmorphone PFS 2 MG/ML SYR ONE (09:06)
[2021-06-01 11:01] LABS: AMYLASE 35 U/L (25-115); LIPASE 67 U/L (73-393)
[2021-06-02] MEDS ORDERED: FAMO-90 PO (07:35)
[2021-06-02] MEDS ORDERED: PANT40EC PO (07:36)
== END 2021-06-02 08:20 | disposition home or self-care (01) | DRG 566 ==
LOC: MLD 22:05 → OBSVTOIN 06-01 19:03
PROVIDERS: ADMIT Obstetrics & Gynecology; ATTEND Obstetrics & Gynecology
PROC: 30233N1 Transfusion of Nonautologous Red Blood Cells into Peripheral Vein, Percutaneous Approach (ICD-10-PCS; principal; 2021-06-01)
DX: O36.8330 Maternal care for abnormalities of the fetal heart rate or rhythm, third trimester, not applicable or unspecified (principal); O26.893 Other specified pregnancy related conditions, third trimester; G89.29 Other chronic pain; M54.9 Dorsalgia, unspecified; R10.9 Unspecified abdominal pain; Z79.899 Other long term (current) drug therapy; Z3A.34 34 weeks gestation of pregnancy
CPT/HCPCS: 36415; 76700; 80053; 81001; 82150; 83690; 85025; 86592; 86762; 86886; 86900; 86901; 86920; 87086; 87340; C9113; G0378; J1170; J1200; J1756; J2765; J3490; P9016; Q0092

== ENCOUNTER 2021-09-19 04:19 | Emergency (ER) | payer OTHER ==
[~2021-09-19] VITALS: Ht 162.6 cm; Wt 108.9 kg
[~2021-09-19 04:19] MED LIST changes: +PANT40EC PO
[2021-09-19 04:31] VITALS: BP 113/74
[2021-09-19 04:35] VITALS: BP 113/74
--- NOTE | 2021-09-19 04:38 | NUR ---
urine collected. pt to raymundo
[2021-09-19] MEDS ORDERED: ONDANSETRON 4 MG ODT PO ONE (04:45)
[2021-09-19] MEDS ORDERED: KETOROLAC 60 MG/2 ML VIAL IM ONE (04:45)
--- NOTE | 2021-09-19 04:56 | NUR ---
PT TAKEN TO ULTRASOUND
[2021-09-19] MEDS ORDERED: NACL 0.9% 1,000 ML IV ONE (05:10)
--- NOTE | 2021-09-19 05:20 | NUR ---
PT TAKEN TO CHAIR C
--- NOTE | 2021-09-19 05:23 | NUR ---
Dr. Gaytan examining patient.
--- NOTE | 2021-09-19 05:25 | NUR ---
bloodwork cancelled per Dr. Gaytan
[2021-09-19] MEDS ORDERED: TAMS0.4C96 PO (06:07)
[2021-09-19] MEDS ORDERED: ONDA8TAB87 PO (06:07)
[2021-09-19] MEDS ORDERED: IBUP-2213 PO (06:07)
[2021-09-19] MEDS ORDERED: ACET-8386 PO (06:07)
--- NOTE | 2021-09-19 06:44 | NUR ---
Patient discharged with v/s stable. Written and verbal after care instructions given and explained. Patient alert, oriented and verbalized understanding of instructions. Ambulatory with steady gait. All questions addressed prior to discharge. ID band removed. Patient advised to follow up with PMD. Rx of FLOMAX, MOTRIN, AND NORCO given. Patient educated on indication of medication including possible reaction and side effects. Opportunity to ask questions provided and answered.
== END 2021-09-19 06:44 | disposition home or self-care (01) ==
LOC: MED 04:19
DX: R10.11 Right upper quadrant pain (principal); Z98.890 Other specified postprocedural states; Z79.899 Other long term (current) drug therapy; Z79.2 Long term (current) use of antibiotics; Z88.5 Allergy status to narcotic agent
CPT/HCPCS: 76705; 81002; 81025; 96360; 96372; 99284; J1885; J7030; Q0092; Q0162

== ENCOUNTER 2021-11-02 19:01 | Emergency (ER) | payer OTHER ==
[~2021-11-02] VITALS: Ht 162.6 cm; Wt 102.5 kg
[~2021-11-02 19:01] MED LIST changes: +ACET-8386 PO; +IBUP-2213 PO; +TAMS0.4C96 PO
[2021-11-02 19:06] VITALS: BP 104/63
[2021-11-02] MEDS ORDERED: ONDANSETRON 4 MG/2 ML VIAL IVP ONE (19:15)
[2021-11-02] MEDS ORDERED: NACL 0.9% 1,000 ML IV ONE (19:15)
[2021-11-02] MEDS ORDERED: KETOROLAC 30 MG/ML VIAL IVP ONE (19:15)
--- NOTE | 2021-11-02 19:30 | NUR ---
26 YO F BIB SELF WITH C/C OF N/V/D XTUESDAY. PT REPORTS 10/ MID ABD SHARP PAIN. PT DENIES BLOOD IN STOOL AND EMESIS. PT STATES HER WHOLE FAMILY HAS FOOD POISIONING AFTER EATING CHICKEN. PT STATES SHE TOOK PEPTO WITH NO RELIEF. ABD IS SOFT AND ROUND, BOWEL SOUNDS ACTIVE X4 QUADS. HX:ANEMIA ALLERGY:MORPHINE
[2021-11-02] MEDS ORDERED: ONDA8TAB87 PO (19:31)
[2021-11-02] MEDS ORDERED: IBUP-2213 PO (19:31)
[2021-11-02] MEDS ORDERED: LOPE-289 PO (19:31)
--- NOTE | 2021-11-02 19:35 | NUR ---
IV TO LEFT AC, MEDICATED AND FLUIDS STARTED ORDERED.
[2021-11-02 20:30] VITALS: BP 118/72
--- NOTE | 2021-11-02 20:30 | NUR ---
Patient discharged with v/s stable. Written and verbal after care instructions given and explained. Patient alert, oriented and verbalized understanding of instructions. Ambulatory with steady gait. All questions addressed prior to discharge. ID band removed. Patient advised to follow up with PMD. Rx of LOPERAMIDE, ZOFRAN, IBUPROFEN given. Patient educated on indication of medication including possible reaction and side effects. Opportunity to ask questions provided and answered.
== END 2021-11-02 20:30 | disposition home or self-care (01) ==
LOC: MED 19:01
DX: R10.13 Epigastric pain (principal); R11.2 Nausea with vomiting, unspecified; R19.7 Diarrhea, unspecified; R68.83 Chills (without fever); Z88.5 Allergy status to narcotic agent; Z79.899 Other long term (current) drug therapy; Z98.890 Other specified postprocedural states
CPT/HCPCS: 81002; 81025; 96361; 96374; 96375; 99284; J7030; J1885; J2405

== ENCOUNTER 2022-07-02 20:48 | Emergency (ER) | payer OTHER ==
[~2022-07-02] VITALS: Ht 160 cm; Wt 110.8 kg
[~2022-07-02 20:48] MED LIST changes: +LOPE-289 PO
[2022-07-02 21:36] VITALS: BP 110/78
--- NOTE | 2022-07-02 21:40 | NUR ---
URINE COLLECTED, PT SENT TO LOBBY.
--- NOTE | 2022-07-02 22:34 | NUR ---
URINE COLLECTED AND HANDED TO LAB
--- NOTE | 2022-07-03 00:17 | NUR ---
SIRISHA LUTHER CALLED PT IN LOBBY AND OUTSIDE, NO ANSWER.
== END 2022-07-03 00:19 | disposition left against medical advice (07) ==
LOC: MED 20:48
DX: R10.2 Pelvic and perineal pain (principal); Z53.21 Procedure and treatment not carried out due to patient leaving prior to being seen by health care provider

== ENCOUNTER 2022-09-23 23:12 | Emergency (ER) | payer OTHER ==
[~2022-09-23] VITALS: Ht 162.6 cm; Wt 113.4 kg
[~2022-09-23 23:12] MED LIST changes: -ACET-8386 PO; +ACET-8905 PO
[2022-09-23 23:45] VITALS: BP 109/62
--- NOTE | 2022-09-23 23:48 | NUR ---
TO LOBBY A/W BED AMBULATORY
--- NOTE | 2022-09-24 00:55 | NUR ---
Dr. Amaro examining patient.
[2022-09-24] MEDS ORDERED: ACETAMINOPHEN 325 MG TAB PO ONE (02:20)
[2022-09-24] MEDS ORDERED: KETOROLAC 15 MG/ML VIAL IM ONE (02:30)
[2022-09-24] MEDS ORDERED: IBUP-2213 PO (03:11)
[2022-09-24 03:23] VITALS: BP 112/70
== END 2022-09-24 03:23 | disposition home or self-care (01) ==
LOC: MED 23:12
DX: N64.4 Mastodynia (principal); Z79.899 Other long term (current) drug therapy; Z88.5 Allergy status to narcotic agent
CPT/HCPCS: 76641; 81025; 96372; 99284; J1885

== ENCOUNTER 2022-11-30 20:57 | Emergency (ER) | payer OTHER ==
[~2022-11-30] VITALS: Ht 162.6 cm; Wt 108.9 kg
[2022-11-30 21:02] VITALS: BP 126/70
[2022-11-30] MEDS ORDERED: ALUMINUM HYD/MAG/SIMETHICONE 30 ML UDC PO ONE (21:45)
[2022-11-30] MEDS ORDERED: FAMOTIDINE 20 MG TAB PO ONE (21:45)
[2022-11-30] MEDS ORDERED: ONDANSETRON 4 MG/2 ML VIAL IVP ONE ×2 (21:45→23:15)
[2022-11-30] MEDS ORDERED: KETOROLAC 15 MG/ML VIAL IVP ONE (21:45)
[2022-11-30 22:08] LABS: BASOPHILS % (AUTO) 0.4 % (0.0-2.0); EOSINOPHILS # (AUTO) 0.1 K/uL (0-0.4); EOSINOPHILS % (AUTO) 1.3 % (0.0-4.0); HEMATOCRIT 36.6 % (36-48); LYMPHOCYTES # (AUTO) 2.8 K/uL (2.5-16.5); MEAN CORPUSCULAR HEMOGLOBIN 25 pg (27-31); MEAN CORPUSCULAR HGB CONC 33 g/dL (33-37); MONOCYTES # (AUTO) 0.5 K/uL (0.8-1.0); NEUTROPHILS # (AUTO) 6.2 K/uL (1.8-7.7); NEUTROPHILS % (AUTO) 64.3 % (42.2-75.2); PLATELET COUNT (AUTO) 312 K/uL (140-450); RED BLOOD CELL COUNT(AUTO) 4.76 MIL/uL (4.20-5.40); RED CELL DISTRIBUTION WIDTH 15.9 % (11.6-13.7); WHITE BLOOD COUNT (AUTO) 9.7 K/uL (4.8-10.8)
[2022-11-30 22:45] LABS: ANION GAP 15.3 (8-16); ASPARTATE AMINOTRANSFERASE 12 U/L (15-37); CARBON DIOXIDE 23.3 mmol/L (21-32); CHLORIDE 98 mmol/L (98-107); CREATININE 0.7 mg/dL (0.6-1.3); GFR ARICAN-AMERICAN 130 mL/min (>90); GLUCOSE 96 mg/dL (74-106); POTASSIUM 3.6 mmol/L (3.5-5.1); SODIUM SERUM 133 mmol/L (136-145); TOTAL BILIRUBIN 0.2 mg/dL (0.0-1.0); UREA NITROGEN, BLOOD 19 mg/dL (7-18)
[2022-12-01] MEDS ORDERED: traMADol 50 MG TAB PO ONE (00:45)
[2022-12-01] MEDS ORDERED: ONDA-188 PO (01:00)
[2022-12-01] MEDS ORDERED: FAMO-90 PO (01:00)
[2022-12-01] MEDS ORDERED: ACET-10509 PO (01:00)
[2022-12-01 01:18] VITALS: BP 118/75
[2022-12-05] MEDS ORDERED: ACET-8905 PO (13:04)
== END 2022-12-01 01:16 | disposition home or self-care (01) ==
LOC: MED 20:57
DX: R07.9 Chest pain, unspecified (principal); K21.9 Gastro-esophageal reflux disease without esophagitis; Z79.899 Other long term (current) drug therapy; Z98.890 Other specified postprocedural states
CPT/HCPCS: 36415; 71045; 80053; 84484; 85025; 93005; 96374; 96375; 96376; 99285; J1885; J2405

== ENCOUNTER 2022-12-25 07:53 | Emergency (ER) | payer OTHER ==
[~2022-12-25] VITALS: Ht 160 cm; Wt 111.1 kg
[~2022-12-25 07:53] MED LIST changes: +ACET-10509 PO; -FAMO-90 PO; -FERR325E14 PO; -IBUP-2213 PO; -LOPE-289 PO; -NITR100C7 PO; -ONDA4TAB PO; -ONDA8TAB87 PO; -PANT40EC PO; -PREN-380 PO; -PYRI25TA15 PO; -TAMS0.4C96 PO
[2022-12-25 08:01] VITALS: BP 110/71
--- NOTE | 2022-12-25 08:55 | NUR ---
PT AMBULATED TO ER BED 8
--- NOTE | 2022-12-25 09:00 | NUR ---
Dr. Moreira evaluating pt at bedside
--- NOTE | 2022-12-25 09:00 | NUR ---
27 y/o F BIB self from home c/o incisional site pain s/p cholecystectomy 3 weeks ago. Patient states noted pain last night before bedtime; states reached above this morning and felt a tug to incision site. 1cm incision site reddened to RUQ. States 8/10, sharp/constant, non-radiating pain worsening with bending to the right. Denies medications prior to arrival; denies fever, chills, n/v/d, urinary symptoms.Abebrile at this time. Bed locked in lowest position, side rails x 1. PMH/Sx/Meds: , cholecystectomy Allergies: morphine
--- NOTE | 2022-12-25 09:14 | NUR ---
Steri-strips applied to open incision site.
== END 2022-12-25 09:18 | disposition home or self-care (01) ==
LOC: MED 07:53
DX: R10.11 Right upper quadrant pain (principal); T81.31XA Disruption of external operation (surgical) wound, not elsewhere classified, initial encounter; Z88.5 Allergy status to narcotic agent; Z79.899 Other long term (current) drug therapy; Z90.49 Acquired absence of other specified parts of digestive tract
CPT/HCPCS: 99281

== ENCOUNTER 2023-02-14 12:08 | Day surgery (SDC) | payer OTHER ==
[~2023-02-14] VITALS: Ht 162.6 cm; Wt 106.6 kg
[2023-02-14] MEDS ORDERED: MIDAZOLAM 2 MG/2 ML VIAL ONE (12:50)
[2023-02-14] MEDS ORDERED: diphenhydrAMINE 50 MG/ML VIAL ONE (12:50)
[2023-02-14] MEDS ORDERED: fentaNYL citrate 0.05 MG/ML VIAL ONE (12:50)
[2023-02-14] MEDS ORDERED: MIDAZOLAM 5 MG/5 ML VIAL IV ONE (14:50)
[2023-02-14] MEDS ORDERED: diphenhydrAMINE 50 MG/ML VIAL IVP ONE (14:50)
[2023-02-14] MEDS ORDERED: fentaNYL citrate 0.05 MG/ML VIAL IVP ONE (14:50)
== END 2023-02-14 14:50 | disposition home or self-care (01) ==
LOC: MDS 12:08 → MMU 12:09 → MDS 14:50
PROVIDERS: ATTEND Internal Medicine Gastroenterology
DX: D50.9 Iron deficiency anemia, unspecified (principal); K29.50 Unspecified chronic gastritis without bleeding; B96.81 Helicobacter pylori [H. pylori] as the cause of diseases classified elsewhere; Z80.0 Family history of malignant neoplasm of digestive organs; E66.9 Obesity, unspecified; Z88.5 Allergy status to narcotic agent; Z79.899 Other long term (current) drug therapy; Z90.49 Acquired absence of other specified parts of digestive tract
CPT/HCPCS: 43239; 45378; 88305; 88312; 88313; 88342; J1200; J2250; J3010

== ENCOUNTER 2023-03-25 13:20 | Emergency (ER) | payer OTHER ==
[~2023-03-25] VITALS: Ht 165.1 cm; Wt 90.7 kg
[2023-03-25 14:15] VITALS: BP 122/72; PULSE 89; RESP 20; TEMP 98; O2SAT 98
[2023-03-25] MEDS ORDERED: IBUPROFEN 800 MG TAB PO SCH (14:25)
[2023-03-25] MEDS ORDERED: IBUP-2218 PO (15:11)
--- NOTE | 2023-03-25 16:07 | NUR ---
KNEE IMMOBILIZER APPLIED TO R KNEE. + CMS. PT GIVEN CRUTCHES AND RETURNED SAFE DEMONSTRATION.
--- NOTE | 2023-03-25 19:03 | NUR ---
EMT CHARTING REVIEWED AND AGREED
== END 2023-03-25 16:30 | disposition home or self-care (01) ==
LOC: MED 13:20
DX: S80.01XA Contusion of right knee, initial encounter (principal); Z88.5 Allergy status to narcotic agent; Z79.899 Other long term (current) drug therapy; W18.30XA Fall on same level, unspecified, initial encounter; Y93.89 Activity, other specified; Y92.89 Other specified places as the place of occurrence of the external cause; Y99.8 Other external cause status
CPT/HCPCS: 29505; 73562; 99283

== ENCOUNTER 2023-04-14 00:16 | Emergency (ER) | payer OTHER ==
[~2023-04-14] VITALS: Ht 162.6 cm; Wt 109.8 kg
[~2023-04-14 00:16] MED LIST changes: +IBUP-2218 PO
[2023-04-14 00:20] VITALS: PULSE 85; RESP 16; TEMP 97.4; O2SAT 97
--- NOTE | 2023-04-14 00:50 | NUR ---
PT AMBULATES TO BED 7
--- NOTE | 2023-04-14 01:10 | NUR ---
27 F BIB SELF C/O FOREIGN OBJECT IN RIGHT FOOT. PT STATES SHE WAS GETTING OUT OF HER CAR AT HOME, STEPPED ON GRASS AND FELT A BURNING SENSATION TO THE BOTTOM OF HER FOOT. PT STATES SHE ATTEMPTED TO REMOVE OBJECT AT HOME BUT STATES SHE COULDNT "TAKE THE PAIN". MORPHINE NO MED HX
[2023-04-14 01:51] VITALS: O2SAT 97
--- NOTE | 2023-04-14 02:04 | NUR ---
DR AMARAL AT BEDSIDE FOR EXAM
== END 2023-04-14 02:35 | disposition home or self-care (01) ==
LOC: MED 00:16
DX: S90.851A Superficial foreign body, right foot, initial encounter (principal); Z79.899 Other long term (current) drug therapy; X58.XXXA Exposure to other specified factors, initial encounter; Y93.89 Activity, other specified; Y92.89 Other specified places as the place of occurrence of the external cause; Y99.8 Other external cause status
CPT/HCPCS: 10120; 99281; 99285

== ENCOUNTER 2023-04-16 14:23 | Emergency (ER) | payer OTHER ==
[~2023-04-16] VITALS: Ht 162.6 cm; Wt 109.8 kg
[2023-04-16 14:30] VITALS: BP 112/73; PULSE 89; RESP 20; TEMP 98; O2SAT 98
[2023-04-16] MEDS ORDERED: CEPH-588 PO (16:54)
[2023-04-16] MEDS ORDERED: PYR100 PO (16:54)
[2023-04-16] MEDS ORDERED: IBUP-2213 PO (16:54)
[2023-04-16] MEDS ORDERED: KETOROLAC 30 MG/ML VIAL IM ONE (16:55)
[2023-04-16 17:00] VITALS: BP 108/79; PULSE 74; RESP 17; O2SAT 99
--- NOTE | 2023-04-16 17:01 | NUR ---
Patient discharged with v/s stable. Written and verbal after care instructions given and explained. Patient alert, oriented and verbalized understanding of instructions. Ambulatory with steady gait. All questions addressed prior to discharge. ID band removed. Patient advised to follow up with PMD. Rx of KEFLEX,PYRIDIUM given. Patient educated on indication of medication including possible reaction and side effects. Opportunity to ask questions provided and answered.
== END 2023-04-16 17:00 | disposition home or self-care (01) ==
LOC: MED 14:23
DX: N30.01 Acute cystitis with hematuria (principal); Z88.5 Allergy status to narcotic agent; Z79.899 Other long term (current) drug therapy
CPT/HCPCS: 81002; 81025; 99283

== ENCOUNTER 2023-06-14 22:07 | Emergency (ER) | payer OTHER ==
[~2023-06-14] VITALS: Ht 165.1 cm; Wt 108.9 kg
[~2023-06-14 22:07] MED LIST changes: +CEPH-588 PO; +IBUP-2213 PO; +PYR100 PO
[2023-06-14 22:30] VITALS: BP 125/68; PULSE 89; RESP 17; TEMP 97.8; O2SAT 100
[2023-06-15] MEDS ORDERED: ACETAMINOPHEN EXTRA STRENGTH 500 MG TAB PO ONE (01:30)
[2023-06-15 01:33] LABS: APPEARANCE,URINE CLEAR (CLEAR); BILIRUBIN,URINE NEGATIVE (NEGATIVE); BLOOD, URINE NEGATIVE (NEGATIVE); COLOR,URINE YELLOW (YELLOW); LEUKOCYTE ESTERASE ,URINE NEGATIVE (NEGATIVE); NITRITE, URINE NEGATIVE (NEGATIVE); PROTEIN,URINE NEGATIVE (NEGATIVE); UGLUCOSE NEGATIVE (NEGATIVE); UROBILINOGEN,URINE 0.2 EU/dL (0.2 - 1)
[2023-06-15 01:40] LABS: BASOPHILS % (AUTO) 0.4 % (0.0-2.0); EOSINOPHILS # (AUTO) 0.1 K/uL (0-0.4); EOSINOPHILS % (AUTO) 1.6 % (0.0-4.0); HEMATOCRIT 35.8 % (36-48); HEMOGLOBIN 11.6 g/dL (12.0-16.0); LYMPHOCYTES # (AUTO) 3.1 K/uL (2.5-16.5); LYMPHOCYTES % (AUTO) 34.7 % (20.5-51.1); MEAN CORPUSCULAR HEMOGLOBIN 25 pg (27-31); MEAN CORPUSCULAR HGB CONC 32 g/dL (33-37); MEAN CORPUSCULAR VOLUME 77.5 fL (80-94); MONOCYTES # (AUTO) 0.5 K/uL (0.8-1.0); MONOCYTES % (AUTO) 5.3 % (1.7-9.3); NEUTROPHILS # (AUTO) 5.2 K/uL (1.8-7.7); PLATELET COUNT (AUTO) 291 K/uL (140-450); RED BLOOD CELL COUNT(AUTO) 4.62 MIL/uL (4.20-5.40); RED CELL DISTRIBUTION WIDTH 15.7 % (11.6-13.7)
[2023-06-15 01:58] LABS: ALBUMIN 3.5 g/dL (3.4-5.0); ANION GAP 11.9 (8-16); CALCIUM 8.9 mg/dL (8.5-10.1); CARBON DIOXIDE 26.5 mmol/L (21-32); POTASSIUM 4.4 mmol/L (3.5-5.1); TOTAL BILIRUBIN 0.2 mg/dL (0.0-1.0); TOTAL PROTEIN, SERUM 7.5 g/dL (6.4-8.2)
[2023-06-15] MEDS ORDERED: ACETAMINOPHEN EXTRA STRENGTH 500 MG TAB ONE (03:07)
[2023-06-15] MEDS ORDERED: IBUP-2213 PO (06:53)
[2023-06-15] MEDS ORDERED: FAMO-90 PO (06:54)
[2023-06-15] MEDS ORDERED: ACET-10509 PO (06:54)
[2023-06-15] MEDS ORDERED: MAG355OR2 PO (06:54)
[2023-06-15 08:02] VITALS: BP 125/68; PULSE 89; RESP 17; TEMP 97.8; O2SAT 100
== END 2023-06-15 08:05 | disposition home or self-care (01) ==
LOC: MED 22:07
DX: R10.13 Epigastric pain (principal); R11.2 Nausea with vomiting, unspecified; R19.7 Diarrhea, unspecified; R10.33 Periumbilical pain; E11.9 Type 2 diabetes mellitus without complications; Z98.890 Other specified postprocedural states; Z79.899 Other long term (current) drug therapy; Z79.1 Long term (current) use of non-steroidal anti-inflammatories (NSAID); Z79.2 Long term (current) use of antibiotics; Z88.5 Allergy status to narcotic agent
CPT/HCPCS: 36415; 80053; 81003; 81025; 83690; 85025; 99284

== ENCOUNTER 2023-07-26 18:16 | Emergency (ER) | payer OTHER ==
[~2023-07-26] VITALS: Ht 162.6 cm; Wt 110.2 kg
[~2023-07-26 18:16] MED LIST changes: +FAMO-90 PO; +MAG355OR2 PO
[2023-07-26 19:00] VITALS: BP 119/69; PULSE 83; RESP 18; TEMP 97.8; O2SAT 100
[2023-07-26] MEDS ORDERED: KETOROLAC 30 MG/ML VIAL IM ONE (19:20)
[2023-07-26] MEDS ORDERED: LIDOCAINE MPF 2% 100 MG/5 ML VIAL INJ ONE (19:25)
== END 2023-07-26 20:20 | disposition home or self-care (01) ==
LOC: MED 18:16
DX: S21.122A Laceration with foreign body of left front wall of thorax without penetration into thoracic cavity, initial encounter (principal); S21.121A Laceration with foreign body of right front wall of thorax without penetration into thoracic cavity, initial encounter; X58.XXXA Exposure to other specified factors, initial encounter; Y93.89 Activity, other specified; Y92.89 Other specified places as the place of occurrence of the external cause; Y99.8 Other external cause status
CPT/HCPCS: 12001; 96372; 99283; J1885; J2001

== ENCOUNTER 2023-08-14 08:12 | Day surgery (SDC) | payer OTHER ==
[~2023-08-14] VITALS: Ht 162.6 cm; Wt 108.9 kg
[2023-08-14 10:21] LABS: BASOPHILS % (AUTO) 0.3 % (0.0-2.0); EOSINOPHILS # (AUTO) 0.1 K/uL (0-0.4); EOSINOPHILS % (AUTO) 1.1 % (0.0-4.0); HEMATOCRIT 35.1 % (36-48); HEMOGLOBIN 11.3 g/dL (12.0-16.0); LYMPHOCYTES # (AUTO) 1.8 K/uL (2.5-16.5); LYMPHOCYTES % (AUTO) 23.9 % (20.5-51.1); MEAN CORPUSCULAR HEMOGLOBIN 25 pg (27-31); MEAN CORPUSCULAR HGB CONC 32 g/dL (33-37); MONOCYTES # (AUTO) 0.4 K/uL (0.8-1.0); NEUTROPHILS # (AUTO) 5.2 K/uL (1.8-7.7); NEUTROPHILS % (AUTO) 69.7 % (42.2-75.2); PLATELET COUNT (AUTO) 243 K/uL (140-450); RED BLOOD CELL COUNT(AUTO) 4.56 MIL/uL (4.20-5.40); RED CELL DISTRIBUTION WIDTH 15.2 % (11.6-13.7); WHITE BLOOD COUNT (AUTO) 7.5 K/uL (4.8-10.8)
[2023-08-14 10:54] LABS: ALBUMIN 3.2 g/dL (3.4-5.0); ANION GAP 14.5 (8-16); CALCIUM 8.2 mg/dL (8.5-10.1); CARBON DIOXIDE 24.1 mmol/L (21-32); CREATININE 0.7 mg/dL (0.6-1.3); POTASSIUM 3.6 mmol/L (3.5-5.1); TOTAL BILIRUBIN 0.5 mg/dL (0.0-1.0); TOTAL PROTEIN, SERUM 6.9 g/dL (6.4-8.2)
[2023-08-14] MEDS ORDERED: PROPOFOL 200 MG/20 ML VIAL IV ONE ×3 (10:54→11:02)
[2023-08-14] MEDS ORDERED: LIDOCAINE 2% 100 MG/5 ML SYR IVP ONE (10:54)
[2023-08-14] MEDS ORDERED: SIMETHICONE 40 MG/0.6 ML ONE (10:58)
== END 2023-08-14 12:20 | disposition home or self-care (01) ==
LOC: MDS 08:12 → MMU 08:13 → MDS 12:20
PROVIDERS: ATTEND Internal Medicine Gastroenterology
DX: D50.9 Iron deficiency anemia, unspecified (principal); D12.2 Benign neoplasm of ascending colon; B96.81 Helicobacter pylori [H. pylori] as the cause of diseases classified elsewhere; Z80.0 Family history of malignant neoplasm of digestive organs; Z98.51 Tubal ligation status; Z88.5 Allergy status to narcotic agent
CPT/HCPCS: 36415; 45385; 71045; 80053; 85025; 88305; 93005; J2001; J2704; J7030

== ENCOUNTER 2024-03-02 06:33 | Emergency (ER) | payer OTHER ==
[~2024-03-02] VITALS: Ht 162.6 cm; Wt 104.3 kg
[2024-03-02 06:35] VITALS: BP 121/83; PULSE 72; RESP 16; TEMP 97.6; O2SAT 98
[2024-03-02] MEDS: ALUMINUM HYD/MAG/SIMETHICONE 30 ML UDC PO ONE (07:07)
[2024-03-02] MEDS: FAMOTIDINE 20 MG TAB PO ONE (07:07)
[2024-03-02] MEDS: ONDANSETRON 4 MG ODT PO ONE (07:07)
[2024-03-02 07:23] LABS: BASOPHILS % (AUTO) 0.4 % (0.0-2.0); EOSINOPHILS # (AUTO) 0.2 K/uL (0-0.4); EOSINOPHILS % (AUTO) 3.1 % (0.0-4.0); HEMATOCRIT 32.7 % (36-48); HEMOGLOBIN 10.3 g/dL (12.0-16.0); LYMPHOCYTES # (AUTO) 2.2 K/uL (2.5-16.5); MEAN CORPUSCULAR HEMOGLOBIN 24 pg (27-31); MEAN CORPUSCULAR HGB CONC 32 g/dL (33-37); MEAN CORPUSCULAR VOLUME 77.2 fL (80-94); MONOCYTES # (AUTO) 0.4 K/uL (0.8-1.0); MONOCYTES % (AUTO) 6.4 % (1.7-9.3); NEUTROPHILS # (AUTO) 3.4 K/uL (1.8-7.7); NEUTROPHILS % (AUTO) 54.1 % (42.2-75.2); PLATELET COUNT (AUTO) 257 K/uL (140-450); RED BLOOD CELL COUNT(AUTO) 4.23 MIL/uL (4.20-5.40); RED CELL DISTRIBUTION WIDTH 15.1 % (11.6-13.7); WHITE BLOOD COUNT (AUTO) 6.2 K/uL (4.8-10.8)
[2024-03-02 07:45] LABS: ANION GAP 8.8 (8-16); CALCIUM 7.6 mg/dL (8.5-10.1); CARBON DIOXIDE 27.2 mmol/L (21-32); CREATININE 0.6 mg/dL (0.6-1.3)
[2024-03-02 07:49] LABS: BILIRUBIN,DIRECT 0.1 mg/dL (0.0-0.3); TOTAL BILIRUBIN 0.2 mg/dL (0.0-1.0); TOTAL PROTEIN, SERUM 6.5 g/dL (6.4-8.2)
[2024-03-02] MEDS ORDERED: FAMO-92 PO (08:16)
[2024-03-02] MEDS ORDERED: ACET-10509 PO (08:16)
[2024-03-02] MEDS ORDERED: ONDA-188 PO (08:16)
[2024-03-02 08:36] VITALS: BP 104/61; PULSE 84; RESP 16; TEMP 36.44736; O2SAT 100
== END 2024-03-02 08:36 | disposition home or self-care (01) ==
LOC: MED 06:33
DX: R10.13 Epigastric pain (principal); D64.9 Anemia, unspecified; Z87.442 Personal history of urinary calculi; Z98.890 Other specified postprocedural states; Z90.49 Acquired absence of other specified parts of digestive tract; Z79.1 Long term (current) use of non-steroidal anti-inflammatories (NSAID); Z79.2 Long term (current) use of antibiotics; Z79.899 Other long term (current) drug therapy; Z88.5 Allergy status to narcotic agent
CPT/HCPCS: 36415; 80048; 80076; 81002; 81025; 83690; 85025; 99285; Q0162

== ENCOUNTER 2024-04-02 01:19 | Emergency (ER) | payer OTHER ==
[~2024-04-02] VITALS: Ht 162.6 cm; Wt 117.9 kg
[~2024-04-02 01:19] MED LIST changes: +FAMO-92 PO; +ONDA-188 PO
[2024-04-02 01:23] VITALS: BP 115/73; PULSE 72; RESP 20; TEMP 97; O2SAT 98
[2024-04-02 01:48] VITALS: O2SAT 98
[2024-04-02 01:49] LABS: APPEARANCE,URINE CLEAR (CLEAR); BILIRUBIN,URINE NEGATIVE (NEGATIVE); BLOOD, URINE NEGATIVE (NEGATIVE); COLOR,URINE YELLOW (YELLOW); LEUKOCYTE ESTERASE ,URINE TRACE (NEGATIVE); NITRITE, URINE NEGATIVE (NEGATIVE); PROTEIN,URINE NEGATIVE (NEGATIVE); UGLUCOSE NEGATIVE (NEGATIVE); UROBILINOGEN,URINE 0.2 EU/dL (0.2 - 1)
[2024-04-02 01:55] LABS: BASOPHILS % (AUTO) 0.4 % (0.0-2.0); EOSINOPHILS # (AUTO) 0.2 K/uL (0-0.4); EOSINOPHILS % (AUTO) 1.9 % (0.0-4.0); HEMATOCRIT 32.4 % (36-48); HEMOGLOBIN 10.3 g/dL (12.0-16.0); LYMPHOCYTES # (AUTO) 3.3 K/uL (2.5-16.5); LYMPHOCYTES % (AUTO) 38.5 % (20.5-51.1); MEAN CORPUSCULAR HEMOGLOBIN 24 pg (27-31); MEAN CORPUSCULAR HGB CONC 32 g/dL (33-37); MEAN CORPUSCULAR VOLUME 76.5 fL (80-94); MONOCYTES # (AUTO) 0.4 K/uL (0.8-1.0); MONOCYTES % (AUTO) 4.9 % (1.7-9.3); NEUTROPHILS # (AUTO) 4.7 K/uL (1.8-7.7); NEUTROPHILS % (AUTO) 54.3 % (42.2-75.2); PLATELET COUNT (AUTO) 265 K/uL (140-450); RED BLOOD CELL COUNT(AUTO) 4.24 MIL/uL (4.20-5.40); RED CELL DISTRIBUTION WIDTH 15.3 % (11.6-13.7); WHITE BLOOD COUNT (AUTO) 8.7 K/uL (4.8-10.8)
[2024-04-02 02:02] LABS: BACTERIA,URINE 10-30 (MOD) /HPF (None Seen); RBC,URINE 0-5 /HPF (0-5)
[2024-04-02 02:03] LABS: MUCUS,URINE 1+ /LPF (None Seen); SQUAMOUS EPITHELIAL CELL,UR 4-10 (MOD) /LPF (0-3 (FEW))
[2024-04-02] MEDS: NACL 0.9% 1,000 ML IV ONE (02:03)
[2024-04-02] MEDS: KETOROLAC 30 MG/ML VIAL IVP ONE (02:04)
[2024-04-02] MEDS: ONDANSETRON 4 MG/2 ML VIAL IVP ONE (02:04)
[2024-04-02 02:11] LABS: ANION GAP 11.7 (8-16); CALCIUM 8.9 mg/dL (8.5-10.1); CARBON DIOXIDE 26.8 mmol/L (21-32); CREATININE 0.6 mg/dL (0.6-1.3); POTASSIUM 3.5 mmol/L (3.5-5.1)
[2024-04-02 02:16] LABS: ALBUMIN 3.4 g/dL (3.4-5.0); BILIRUBIN,DIRECT 0.1 mg/dL (0.0-0.3); TOTAL BILIRUBIN 0.2 mg/dL (0.0-1.0); TOTAL PROTEIN, SERUM 7.2 g/dL (6.4-8.2)
[2024-04-02] MEDS ORDERED: ONDA-188 PO (03:28)
[2024-04-02] MEDS ORDERED: NAPR-337 PO (03:28)
== END 2024-04-02 03:35 | disposition home or self-care (01) ==
LOC: MED 01:19
DX: N39.0 Urinary tract infection, site not specified (principal); D50.9 Iron deficiency anemia, unspecified; R19.7 Diarrhea, unspecified; Z90.49 Acquired absence of other specified parts of digestive tract; Z98.890 Other specified postprocedural states; Z79.899 Other long term (current) drug therapy; Z88.5 Allergy status to narcotic agent
CPT/HCPCS: 36415; 74176; 80048; 80076; 81001; 81025; 83690; 85025; 87086; 96361; 96374; 96375; 99285; J1885; J2405; J7030